=== PATIENT | female | born 1955 | race Caucasian/White ===

== ENCOUNTER → 2018-03-10 | Outpatient (CLI) | payer OTHER ==
[~2018-03-10] MED LIST: FLU60VIA41 IM; LEVO25TA61 PO
--- NOTE | 2018-03-10 16:24 | RADIOLOGY IMAGING REPORT ---
FACILITY: [facility] PATIENT NAME: SCOTTY ROMAN : [id number] MR: [id number] V: [id number] EXAM DATE: [id number] ORDERING PHYSICIAN: JEFFERY MONSIVAIS TECHNOLOGIST: Radha Odonnell PROCEDURE:BILATERAL DIGITAL SCREENING MAMMOGRAM WITH CAD ASSISTED INTERPRETATION & 3D TOMOSYNTHESIS COMPARISON:Prior mammograms 03/03/13, 06/17/11. INDICATIONS:screening FINDINGS: There are scattered areas of fibroglandular density. The parenchymal pattern has remained stable allowing for difference in mammographic technique & patient positioning. There is no evidence of malignant appearing mass, malignant appearing calcifications or other secondary sign of malignancy in either breast. DIAGNOSTIC CATEGORY 1--NEGATIVE. RECOMMENDATIONS: ROUTINE MAMMOGRAM AND CLINICAL EVALUATION. IMPRESSION: BIRADS 1: Negative. No significant abnormality is seen. Dictated by: Abimbola Noe M.D. on 03/10/2018 at 14:54 Transcribed by: GILBERT on 03/10/2018 at 15:14 Approved by: Abimbola Noe M.D. on 03/10/2018 at 16:23 [facility]
== END ==
LOC: MAMO 00:29
PROVIDERS: ATTEND Nurse Practitioner Family
DX: Z12.31 Encounter for screening mammogram for malignant neoplasm of breast (principal)
CPT/HCPCS: 77063; 77067

== ENCOUNTER 2018-06-15 08:33 | Emergency (ER) | payer OTHER ==
[~2018-06-15 08:33] MED LIST changes: +LEVO50TA86 PO
--- NOTE | 2018-06-15 08:37 | ER Report ---
History and Physical Time Seen By MD: 08:36 HPI/ROS CHIEF COMPLAINT: Shortness of breath HISTORY OF PRESENT ILLNESS: Patient is a 63-year-old female who presents with worsening shortness of breath over the past 3 weeks along with nonproductive cough. Patient is a [place] resident however every year spends approximately 2 months in [place]. Patient states symptoms began while in [place] with some generalized malaise mild sore throat and nonproductive cough. The symptoms lasted approximately 1-2 weeks and then and somewhat improved and then for the last few days symptoms have worsened. Patient just returned from [place] to [place] yesterday. Patient denies ever having issues with change in altitude. She describes a discomfort in the chest as a heaviness and pressure along with difficulty taking in a deep breath patient is a nonsmoker. Patient was recently started on thyroid medication for hypothyroidism and has been taking medications for the last 2 months. Patient does admit over the past 2-3 weeks with some night sweats also with some weight loss patient states that she had weighed 152 pounds, weight increased to 158 and then in the last week has decreased her weight to 146 pounds. REVIEW OF SYSTEMS: Constitutional: No fevers but reports night sweats over the past 2-3 weeks Eyes: No discharge. ENT: No sore throat. Cardiovascular: Chest pressure, no palpitations Respiratory: Dry cough and shortness of breath Gastrointestinal: No abdominal pain, no vomiting. Genitourinary: No hematuria. Musculoskeletal: No back pain. Skin: No rashes. Neurological: No headache. Allergies: Coded Allergies: No Known Drug Allergies (Unverified , 06/15/18) Home Meds Active Scripts Benzonatate 100 Mg Cap (TESSALON PERLE 100 MG CAP) 100 Mg Capsule, 100 MG PO TID for cough, #15 CAP 0 Refills Prov:STEPHEN SHERWOOD MD 06/15/18 Levothyroxine Sodium (LEVOTHYROXINE SODIUM) 50 Mcg Tablet, 1 TAB PO DAILY, #90 TAB 0 Refills Prov:JEFFERY MONSIVAIS APRN-C 05/07/18 Past Medical/Surgical History Hypothyroidism otherwise healthy, no known cardiac history Constitutional Vital Sign - Last 24 Hours 06/15/18 06/15/18 06/15/18 06/15/18 08:37 08:38 08:45 08:50 Temp 98.4 Pulse 91 84 Resp 10 12 B/P (MAP) 122/85 (97) 122/85 105/82 (90) Pulse Ox 95 91 O2 Delivery Room Air 06/15/18 06/15/18 06/15/18 06/15/18 09:00 09:15 09:19 09:19 Pulse 80 Resp 14 B/P (MAP) 127/89 (102) 124/82 (96) Pulse Ox 90 O2 Delivery Room Air 06/15/18 06/15/18 06/15/18 06/15/18 09:20 09:25 09:30 09:45 Pulse 80 98 Resp 6 14 B/P (MAP) 114/71 (85) ???/??? (1665) Pulse Ox 92 06/15/18 06/15/18 06/15/18 06/15/18 09:50 10:00 10:15 10:20 Pulse ??? 75 B/P (MAP) 123/76 (92) 125/77 (93) Pulse Ox 96 06/15/18 06/15/18 06/15/18 06/15/18 10:30 10:45 10:50 11:26 B/P (MAP) 120/78 (92) 136/79 (98) 134/90 (105) Pulse Ox 96 06/15/18 06/15/18 06/15/18 06/15/18 11:30 11:43 11:43 11:55 Pulse 78 93 Resp 14 B/P (MAP) 117/82 (94) Pulse Ox 91 99 O2 Delivery Room Air 06/15/18 06/15/18 11:58 12:00 Pulse 81 Resp 14 B/P (MAP) 132/67 (88) Physical Exam General/Constitutional: Patient is awake, alert, nontoxic and in no acute respiratory distress. Head: Normocephalic and atraumatic. Eyes: Conjunctival clear, Pupils are equal and reactive to light. Extraocular muscles are intact and symmetrical. Sclera are clear and anicteric. Ears:External canals are clear. Tympanic membranes are clear with normal landmarks and light reflex. Nares: No rhinorrhea or bleeding. Turbinates are pink and moist. Oropharyngeal: Mucous membranes are moist. There is no pharyngeal erythema or exudate. There are no palatal petechiae. Uvula is midline and symmetrical. Neck: Supple, patient with enlarged firm left thyroid mass Cardiovascular: Heart is regular rate and rhythm without audible murmurs, rubs or gallops. Pulmonary: Lungs are clear to auscultation bilaterally. There are no wheezes, rales, or rhonchi. Chest rise is symmetrical Abdomen: Soft, nontender, no guarding or peritoneal signs. Extremities: No gross deformities, No peripheral cyanosis. Able to move all 4 extremities. Neuro: Alert and oriented X3, Skin: No rashes, skin is warm dry and well perfused. Medical Decision Making Data Points Result Diagram: 06/15/18 0845 06/15/18 0845 Laboratory Hematology Test 06/15/18 08:45 06/15/18 09:20 Red Blood Count 3.71 M/uL (4.17-5.56) Mean Corpuscular Volume 94.8 fL (80.0-96.0) Mean Corpuscular Hemoglobin 31.8 pg (26.0-33.0) Mean Corpuscular Hemoglobin Concent 33.6 g/dL (32.0-36.0) Red Cell Distribution Width 12.3 % (11.5-14.5) Mean Platelet Volume 7.0 fL (7.2-11.1) Neutrophils (%) (Auto) 74.7 % (39.4-72.5) Lymphocytes (%) (Auto) 15.3 % (17.6-49.6) Monocytes (%) (Auto) 7.3 % (4.1-12.4) Eosinophils (%) (Auto) 2.2 % (0.4-6.7) Basophils (%) (Auto) 0.5 % (0.3-1.4) Nucleated RBC Relative Count (auto) 0.0 /100WBC Neutrophils # (Auto) 10.1 K/uL (2.0-7.4) Lymphocytes # (Auto) 2.1 K/uL (1.3-3.6) Monocytes # (Auto) 1.0 K/uL (0.3-1.0) Eosinophils # (Auto) 0.3 K/uL (0.0-0.5) Basophils # (Auto) 0.1 K/uL (0.0-0.1) Nucleated RBC Absolute Count (auto) 0.00 K/uL Erythrocyte Sedimentation Rate 27 mm/HOUR (0-30) Prothrombin Time 13.3 seconds (12.0-14.4) Prothromb Time International Ratio 1.01 Activated Partial Thromboplast Time 30 seconds (23-35) Sodium Level 139 mmol/L (137-145) Potassium Level 3.6 mmol/L (3.5-5.0) Chloride Level 105 mmol/L (98-107) Carbon Dioxide Level 26 mmol/L (22-31) Blood Urea Nitrogen 11 mg/dl (7-18) Creatinine 0.90 mg/dl (0.52-1.04) Glomerular Filtration Rate Calc > 60.0 Random Glucose 98 mg/dl (75-110) Calcium Level 9.3 mg/dl (8.4-10.2) Total Bilirubin 0.6 mg/dl (0.2-1.3) Aspartate Amino Transf (AST/SGOT) 21 U/L (0-35) Alanine Aminotransferase (ALT/SGPT) 24 U/L (0-56) Alkaline Phosphatase 111 U/L (0-126) Troponin I < 0.012 ng/ml B-Type Natriuretic Peptide 155 pg/ml (0-100) Total Protein 7.5 g/dl (6.3-8.2) Albumin 4.1 g/dl (3.5-5.0) Thyroid Stimulating Hormone (TSH) 4.96 uIU/ml (0.46-4.68) Influenza Virus Type A (PCR) Negative (NEGATIVE) Influenza Virus Type B (PCR) Negative (NEGATIVE) Chemistry Test 06/15/18 08:45 06/15/18 09:20 White Blood Count 13.5 k/uL (4.5-11.0) Red Blood Count 3.71 M/uL (4.17-5.56) Hemoglobin 11.8 g/dL (12.0-16.0) Hematocrit 35.2 % (34.0-47.0) Mean Corpuscular Volume 94.8 fL (80.0-96.0) Mean Corpuscular Hemoglobin 31.8 pg (26.0-33.0) Mean Corpuscular Hemoglobin Concent 33.6 g/dL (32.0-36.0) Red Cell Distribution Width 12.3 % (11.5-14.5) Platelet Count 459 K/uL (150-450) Mean Platelet Volume 7.0 fL (7.2-11.1) Neutrophils (%) (Auto) 74.7 % (39.4-72.5) Lymphocytes (%) (Auto) 15.3 % (17.6-49.6) Monocytes (%) (Auto) 7.3 % (4.1-12.4) Eosinophils (%) (Auto) 2.2 % (0.4-6.7) Basophils (%) (Auto) 0.5 % (0.3-1.4) Nucleated RBC Relative Count (auto) 0.0 /100WBC Neutrophils # (Auto) 10.1 K/uL (2.0-7.4) Lymphocytes # (Auto) 2.1 K/uL (1.3-3.6) Monocytes # (Auto) 1.0 K/uL (0.3-1.0) Eosinophils # (Auto) 0.3 K/uL (0.0-0.5) Basophils # (Auto) 0.1 K/uL (0.0-0.1) Nucleated RBC Absolute Count (auto) 0.00 K/uL Erythrocyte Sedimentation Rate 27 mm/HOUR (0-30) Prothrombin Time 13.3 seconds (12.0-14.4) Prothromb Time International Ratio 1.01 Activated Partial Thromboplast Time 30 seconds (23-35) Glomerular Filtration Rate Calc > 60.0 Calcium Level 9.3 mg/dl (8.4-10.2) Total Bilirubin 0.6 mg/dl (0.2-1.3) Aspartate Amino Transf (AST/SGOT) 21 U/L (0-35) Alanine Aminotransferase (ALT/SGPT) 24 U/L (0-56) Alkaline Phosphatase 111 U/L (0-126) Troponin I < 0.012 ng/ml B-Type Natriuretic Peptide 155 pg/ml (0-100) Total Protein 7.5 g/dl (6.3-8.2) Albumin 4.1 g/dl (3.5-5.0) Thyroid Stimulating Hormone (TSH) 4.96 uIU/ml (0.46-4.68) Influenza Virus Type A (PCR) Negative (NEGATIVE) Influenza Virus Type B (PCR) Negative (NEGATIVE) Coagulation Test 06/15/18 08:45 Prothrombin Time 13.3 seconds Prothromb Time International Ratio 1.01 Activated Partial Thromboplast Time 30 seconds EKG/Imaging EKG Interpretation EKG shows normal sinus rhythm with a ventricular rate of 77 bpm. There is occasional sinus arrhythmia eyes normal EKG Imaging FACILITY: [facility] [place] PATIENT NAME: Alina Flanagan : 1955 MR: [id number] V: [id number] EXAM DATE: [id number] ORDERING PHYSICIAN: STEPHEN SHERWOOD TECHNOLOGIST: [place] [facility] [place] Fl[place] : 1955 Visit/Account:[id number] Date of Sevice: 06/15/2018 Study: Frontal and lateral views of the chest Indication: Cough, chest congestion Comparison study: None Findings: PA and lateral views of the chest demonstrate no evidence of acute infiltrate. There is no evidence of pleural effusion. There is no evidence of pneumothorax. The mediastinal, cardiac, and diaphragmatic contours are unremarkable. The visualized bony structures are unremarkable. IMPRESSION: Unremarkable chest. Report Dictated By: Archie Garza at 06/15/2018 9:45 AM Report E-Signed By: Archie Garza at 06/15/2018 9:45 AM WSN:[email or web address] FACILITY: [facility] [place] PATIENT NAME: Alina Flanagan : 1955 MR: [id number] V: [id number] EXAM DATE: ORDERING PHYSICIAN: STEPHEN SHERWOOD TECHNOLOGIST: [place] [facility] [place] Fl[place] : 1955 Visit/Account:[id number] Date of Sevice: 06/15/2018 THYROID HISTORY: Rapidly growing thyroid mass over a three week period with difficulty breathing COMPARISON: None. FINDINGS: SIZE: Right lobe: 3.6 x 1.1 x 0.9 cm Left lobe: 4.7 x 4.9 x 4.3 cm Isthmus: 5.1 mm PARENCHYMA: Heterogeneous NODULES: Right lobe: * Please see below discussion Left lobe: * There is a large irregular heterogeneous hypoechoic hypervascular mass encompassing most of the left lobe and appears to cross midline at the isthmus into the medial right lobe. This mass measures 4.3 x 4.7 x 4.1 cm Isthmus: * Please see above discussion VASCULARITY: Within normal limits. ADDITIONAL FINDINGS: None. IMPRESSION: There is a large irregular heterogeneous hypoechoic hypervascular mass enc ompassing most of the left lobe appears to cross midline of the isthmus and into the medial right lobe. Given the clinical history of rapid enlargement over a three week period this finding is extremely concerning for malignancy. Ultrasound-guided FNA biopsy recommended REFERENCE: 2015 [place] [employer] Management Guidelines for Adult Patients with Thyroid Nodules and Differentiated Thyroid Cancer: The [place] [employer] Guidelines Task Force on Thyroid Nodules and Differentiated Thyroid Cancer. SONOGRAPHIC PATTERNS: * Benign: Purely cystic nodules (no solid component); estimated risk of malignancy <1 percent; no biopsy recommended. * Very Low Suspicion: Spongiform or partially cystic nodules without any of the sonographic features described in low, intermediate, or high suspicion patterns; estimated risk of malignancy <3 percent; consider FNA at > 2 cm (Observation without FNA is also a reasonable option). * Low Suspicion: Isoechoic or hyperechoic solid nodule, or partially cystic nodule with eccentric solid areas, without microcalcification, irregular margin or ETE (extra-thyroidal extension), or taller than wide shape; estimated risk of malignancy 5-10 percent; recommend FNA at >1.5 cm. * Intermediate Suspicion: Hypoechoic solid nodule with smooth margins without microcalcifications, ETE (extra-thyroidal extension), or taller than wide shape; estimated risk of malignancy 10-20 percent; recommend FNA at > 1 cm. * High Suspicion: Solid hypoechoic nodule or solid hypoechoic component of a partially cystic nodule with one or more of the following features: irregular margins (infiltrative, microlobulated), microcalcifications, taller than wide shape, rim calcifications with small extrusive soft tissue component, evidence of ETE (extra-thyroidal extension); estimated risk of malignancy >70-90 percent; recommend FNA at > 1 cm. NOTES: * Although a sonographically suspicious subcentimeter thyroid nodule without evidence of extrathyroidal extension or sonographically suspicious lymph nodes may be observed with close sonographic follow-up rather than pursuing immediate FNA, patient age and preference may modify decision-making. A > 50% interval increase in nodule volume and/or development of new suspicious sonographic features are felt to be a valid reasons for potential re-aspiration of a nodule previously shown to have benign FNA cytology. Report Dictated By: Abimbola Noe MD at 06/15/2018 10:09 AM Report E-Signed By: Abimbola Noe MD at 06/15/2018 10:15 AM WSN:PAT ED Course/Re-evaluation ED Course 06/15/2018 10:37:36 am patient with symptoms of lower respiratory tract disease possibly concerning for community acquired pneumonia. Patient with recent stay in [place] over the last few months was also raises the possibility for coccidiomycosis.; CBC shows elevated white count at 13.4; with the electronic medical literature shows that an approximately one quarter of the patient's there is eosinophilia and 1-2 times elevation of sedimentation rate. Patient has no significant eosinophilia and sedimentation rate is normal. Chest x-ray is clear. Despite all these tests being normal it still does not rule out the possibility of coccidiomycosis. A antibody titers of IgG and IgM for coccidiomycosis was sent as a mail route lab. Patient did respond to breathing treatments and seems is that this made her work of breathing easier. Troponin was negative EKG was normal. Additionally on physical exam patient had an asymmetrical enlargement of the left lobe of her thyroid. An ultrasound was performed which demonstrated a solid mass which was concerning for possible lyn gnancy due to its growth over the past 2-3 weeks. We have arranged for fine needle aspiration test to be done. We spoke with patient's primary care provider Daniel Plata is aware to follow up in the blood work as well as the fine- needle aspirate results. I also spoke directly with Dr. Lewis Curiel ear nose and throat physician. He requests that the pathology be sent to [facility] in [facility]. He will also follow up with the patient sometime next week I am waiting to hear from his nurse to schedule that appointment. The patient and were updated with all information. We have opted this time not to empirically treat for coccidiomycosis but rather wait on the blood test. Patient also understands she will need follow-up with her primary care provider as well as follow up with Dr. Curiel for the thyroid mass. Decision to Disposition Date: Jun 15, 2018 Decision to Disposition Time: 13:13 Depart Departure Latest Vital Signs Vital Signs Date Time Temp Pulse Resp B/P (MAP) Pulse Ox O2 Delivery O2 Flow Rate FiO2 06/15/18 12:00 132/67 (88) 06/15/18 11:58 81 14 06/15/18 11:55 99 06/15/18 11:43 Room Air 06/15/18 08:38 98.4 Impression: Primary Impression: Cough Additional Impression: Thyroid mass Condition: Improved Disposition: HOME OR SELF-CARE Referrals: JEFFERY MONSIVAIS APRN FAMILY PROGRAM SPECIALIST-C (PCP) LEWIS CURIEL JR, MD follow up on June 22 at 1:30 PM New Scripts Benzonatate 100 Mg Cap (TESSALON PERLE 100 MG CAP) 100 Mg Capsule 100 MG PO TID for cough, #15 CAP 0 Refills Prov: STEPHEN SHERWOOD MD 06/15/18 Patient Instructions: Acute Cough (GEN), Thyroid Fine-Needle Aspiration Biopsy (DC) Additional Instructions: Albuterol inhaler 2 puffs by mouth every 4-6 hours as needed for cough or shilpi rtness of breath. Return to the ER immediately if you have worsening shortness of breath or inability to swallow. Problem Qualifiers STEPHEN SHERWOOD MD Jun 15, 2018 08:37
[2018-06-15] MEDS ORDERED: ALBUTEROL/IPRATROPIUM 3 ML NEB NEB ONE ×2 (08:55→10:45)
[2018-06-15 09:15] LABS: PLATELET COUNT, AUTOMATED 459 K/uL (150-450)
[2018-06-15 09:22] LABS: INR 1.01
--- NOTE | 2018-06-15 09:50 | RADIOLOGY IMAGING REPORT ---
FACILITY: [facility] [place] PATIENT NAME: Alina Flanagan : 1955 MR: [id number] V: [id number] EXAM DATE: ORDERING PHYSICIAN: STEPHEN SHERWOOD TECHNOLOGIST: Location: [facility] Patient: Alina Flanagan : 1955 Visit/Account:[id number] Date of Sevice: 06/15/2018 Study: Frontal and lateral views of the chest Indication: Cough, chest congestion Comparison study: None Findings: PA and lateral views of the chest demonstrate no evidence of acute infiltrate. There is no evidence of pleural effusion. There is no evidence of pneumothorax. The mediastinal, cardiac, and diaphragmatic contours are unremarkable. The visualized bony structures are unremarkable. IMPRESSION: Unremarkable chest. Report Dictated By: Archie Garza at 06/15/2018 9:45 AM Report E-Signed By: Archie Garza at 06/15/2018 9:45 AM WSN:[email or web address]
--- NOTE | 2018-06-15 10:20 | RADIOLOGY IMAGING REPORT ---
FACILITY: [facility] [place] PATIENT NAME: Alina Flanagan : 1955 MR: [id number] V: [id number] EXAM DATE: ORDERING PHYSICIAN: STEPHEN SHERWOOD TECHNOLOGIST: Location: [facility] Patient: Alina Flanagan : 1955 Visit/Account:[id number] Date of Sevice: 06/15/2018 THYROID HISTORY: Rapidly growing thyroid mass over a three week period with difficulty breathing COMPARISON: None. FINDINGS: SIZE: Right lobe: 3.6 x 1.1 x 0.9 cm Left lobe: 4.7 x 4.9 x 4.3 cm Isthmus: 5.1 mm PARENCHYMA: Heterogeneous NODULES: Right lobe: * Please see below discussion Left lobe: * There is a large irregular heterogeneous hypoechoic hypervascular mass encompassing most of the le ft lobe and appears to cross midline at the isthmus into the medial right lobe. This mass measures 4 .3 x 4.7 x 4.1 cm Isthmus: * Please see above discussion VASCULARITY: Within normal limits. ADDITIONAL FINDINGS: None. IMPRESSION: There is a large irregular heterogeneous hypoechoic hypervascular mass encompassing most of the left lobe appears to cross midline of the isthmus and into the medial right lobe. Given the clinical hist ory of rapid enlargement over a three week period this finding is extremely concerning for malignancy . Ultrasound-guided FNA biopsy recommended REFERENCE: 2015 [place] [employer] Management Guidelines for Adult Patients with Thyroid Nodules and D ifferentiated Thyroid Cancer: The [place] [employer] Guidelines Task Force on Thyroid Nodul es and Differentiated Thyroid Cancer. SONOGRAPHIC PATTERNS: * Benign: Purely cystic nodules (no solid component); estimated risk of malignancy <1 percent; no bi opsy recommended. * Very Low Suspicion: Spongiform or partially cystic nodules without any of the sonographic features described in low, intermediate, or high suspicion patterns; estimated risk of malignancy <3 percent; consider FNA at > 2 cm (Observation without FNA is also a reasonable option). * Low Suspicion: Isoechoic or hyperechoic solid nodule, or partially cystic nodule with eccentric so lid areas, without microcalcification, irregular margin or ETE (extra-thyroidal extension), or taller than wide shape; estimated risk of malignancy 5-10 percent; recommend FNA at >1.5 cm. * Intermediate Suspicion: Hypoechoic solid nodule with smooth margins without microcalcifications, E TE (extra-thyroidal extension), or taller than wide shape; estimated risk of malignancy 10-20 percent ; recommend FNA at > 1 cm. * High Suspicion: Solid hypoechoic nodule or solid hypoechoic component of a partially cystic nodule with one or more of the following features: irregular margins (infiltrative, microlobulated), microc alcifications, taller than wide shape, rim calcifications with small extrusive soft tissue component, evidence of ETE (extra-thyroidal extension); estimated risk of malignancy >70-90 percent; recommend FNA at > 1 cm. NOTES: * Although a sonographically suspicious subcentimeter thyroid nodule without evidence of extrathyroi alejandro extension or sonographically suspicious lymph nodes may be observed with close sonographic follow -up rather than pursuing immediate FNA, patient age and preference may modify decision-making. A > 50% interval increase in nodule volume and/or development of new suspicious sonographic features are felt to be a valid reasons for potential re-aspiration of a nodule previously shown to have benig n FNA cytology. Report Dictated By: Abimbola Noe MD at 06/15/2018 10:09 AM Report E-Signed By: Abimbola Noe MD at 06/15/2018 10:15 AM WSN:PAT
[2018-06-15] MEDS ORDERED: ALBUTEROL 8 GM INHALER INH ONE (10:45)
[2018-06-15] MEDS ORDERED: BENZ100C4 PO (11:22)
[2018-06-15 12:00] VITALS: BP 132/67
--- NOTE | 2018-06-15 12:09 | RADIOLOGY IMAGING REPORT ---
FACILITY: [facility] PATIENT NAME: Alina lFanagan : 1955 MR: [id number] V: [id number] EXAM DATE: ORDERING PHYSICIAN: STEPHEN SHERWOOD TECHNOLOGIST: Location: [facility] Patient: Alina Flanagan : 1955 Visit/Account:[id number] Date of Sevice: 06/15/2018 Exam type: US BIOPSY LOC/INJ THYROID History: Rapidly enlarging left thyroid mass over a three week period with difficulty breathing Comparison: Ultrasound performed today. Findings: Informed consent was obtained. The left side of the patient's neck was prepped and draped usual ster ile fashion. Local anesthesia was accomplished with 1% lidocaine. Under sonographic guidance five 2 5-gauge FNA biopsies were obtained through the large heterogeneous mass in the left lobe the thyroid. The samples were given to the certified pathology assistant for processing. The procedure was accomplishe d without apparent complication. IMPRESSION: 1. Successful sonographically guided left-sided thyroid biopsy Report Dictated By: Abimbola Noe MD at 06/15/2018 12:04 PM Report E-Signed By: Abimbola Noe MD at 06/15/2018 12:05 PM WSN:[id number]
--- NOTE | 2018-06-15 12:11 | EKG ---
FACILITY: [facility] PATIENT NAME: SCOTTY ROMAN : [id number] MR: [id number] V: [id number] EXAM DATE: ORDERING PHYSICIAN: STEPHEN SHERWOOD TECHNOLOGIST: DEMETRIO Test Reason : SOB Blood Pressure : / mmHG Vent. Rate : 077 BPM Atrial Rate : 077 BPM P-R Int : 140 ms QRS Dur : 084 ms QT Int : 374 ms P-R-T Axes : 065 080 067 degrees QTc Int : 423 ms Sinus rhythm Nonspecific ST findings lateral leads Borderline ECG No previous ECGs available Confirmed by JERONIMO RUSSELL ([id number] on 06/15/2018 8:34:33 PM Referred By: PRESLEY Confirmed By:JERONIMO RUSSELL
== END 2018-06-15 12:18 | disposition home or self-care (01) ==
LOC: ER 08:37
DX: R05 Cough (principal); E04.9 Nontoxic goiter, unspecified
CPT/HCPCS: 10005; 71046; 76536; 83880; 84443; 84484; 85025; 85610; 85651; 85730; 86635; 87502; 88104; 88172; 93005; 94640; 99284; J7620; 76942; 82040; 82247; 82310; 82374; 82435; 82565; 82947; 84075; 84132; 84155; 84295; 84450; 84460; 84520

== ENCOUNTER 2018-06-16 19:15 | Emergency (ER) | payer OTHER ==
[~2018-06-16 19:15] MED LIST changes: +BENZ100C4 PO
--- NOTE | 2018-06-16 19:25 | ER Report ---
History and Physical Time Seen By MD: 19:25 Hx. of Stated Complaint: PATIENT WAS SEEN YESTERDAY IN ER FOR SHORTNESS OF BREATH, PATIENT STATES IT HAS GOTTEN WORSE AND AINHLAER ISN'T SEEM TO BE WORKING, COUGH IS GETTING WORSE WELL. HPI/ROS CHIEF COMPLAINT: Cough, shortness of breath HISTORY OF PRESENT ILLNESS: 63-year-old female patient persists to emergency room with complaint of cough and shortness of breath. Patient states she was seen yesterday for same problem and states that it has worsened since then. Grace ent states that she has some anxiety associated with her shortness of breath. Patient states she's been having significant amounts of coughing. She denies having any fevers. Patient states that she was in [place] for the past couple of months. She states that both her and her got ill and she has had persistent cough since then. She states that she also had a needle biopsy of a thyroid mass done yesterday. She states that she has had some swelling there today. She states that there is been worsening of her cough and shortness of breath. REVIEW OF SYSTEMS: Respiratory: No cough, no dyspnea. Cardiovascular: No chest pain, no palpitations. Gastrointestinal: No vomiting, no abdominal pain. Musculoskeletal: No back pain. Allergies: Coded Allergies: No Known Drug Allergies (Unverified , 06/16/18) Home Meds Active Scripts Benzonatate 100 Mg Cap (TESSALON PERLE 100 MG CAP) 100 Mg Capsule, 100 MG PO TID for cough, #15 CAP 0 Refills Prov:STEPHEN SHERWOOD MD 06/15/18 Levothyroxine Sodium (LEVOTHYROXINE SODIUM) 50 Mcg Tablet, 1 TAB PO DAILY, #90 TAB 0 Refills Prov:JEFFERY MONSIVAIS APRN SERVICES [facility] 05/07/18 Past Medical/Surgical History Patient denies any pertinent medical or surgical history. Reviewed Nurses Notes: Yes Hx Substance Use Disorder: No Hx Alcohol Use: Yes (2-3 WINE DAILY) Constitutional Vital Sign - Last 24 Hours 06/16/18 06/16/18 06/16/18 06/16/18 19:21 19:30 19:45 19:47 Temp 99.4 Pulse 74 79 74 Resp 12 9 17 B/P (MAP) 144/83 128/102 (111) Pulse Ox 94 97 93 92 O2 Delivery Room Air Room Air 06/16/18 06/16/18 06/16/18 06/16/18 19:47 19:55 20:00 20:15 Pulse 80 88 75 78 Resp 18 18 9 30 B/P (MAP) 131/79 (96) Pulse Ox 96 96 06/16/18 06/16/18 06/16/18 06/16/18 20:45 20:50 20:55 21:00 Pulse 91 89 88 81 Resp 25 32 16 21 B/P (MAP) 120/83 (95) Pulse Ox 92 94 93 91 06/16/18 06/16/18 06/16/18 06/16/18 21:05 21:10 21:15 21:20 Pulse 86 82 94 82 Resp 13 10 26 28 Pulse Ox 90 89 91 89 06/16/18 06/16/18 06/16/18 06/16/18 21:25 21:30 21:55 22:00 Pulse 79 88 Resp 16 9 B/P (MAP) 111/77 (88) 122/88 (99) Pulse Ox 89 92 06/16/18 06/16/18 06/16/18 06/16/18 22:10 22:25 22:30 22:40 Pulse 101 79 79 Resp 18 18 36 B/P (MAP) 115/87 (96) Pulse Ox 94 91 91 06/16/18 06/16/18 06/16/18 06/16/18 22:55 23:00 23:05 23:10 Pulse 78 75 76 76 Resp 15 47 78 10 B/P (MAP) 132/82 (99) Pulse Ox 92 91 91 91 06/16/18 06/16/18 06/16/18 06/16/18 23:15 23:20 23:25 23:30 Pulse 82 78 94 86 Resp 22 12 10 24 B/P (MAP) 138/100 (113) Pulse Ox 89 93 94 91 06/16/18 06/16/18 06/16/18 06/16/18 23:35 23:40 23:45 23:50 Pulse 82 84 87 ??? Resp 17 31 21 17 Pulse Ox 93 90 91 79 06/17/18 06/17/18 06/17/18 06/17/18 00:00 00:05 00:10 00:15 Pulse 85 78 80 82 Resp 34 8 10 B/P (MAP) 142/82 (102) Pulse Ox 93 93 94 06/17/18 06/17/18 06/17/18 06/17/18 00:20 00:30 00:35 00:40 Pulse 79 73 91 ??? Resp 11 9 26 18 B/P (MAP) 126/82 (97) Pulse Ox 92 90 94 Intake and Output 06/16/18 06/16/18 06/17/18 15:00 23:00 07:00 Intake Total 1000 ml Balance 1000 ml Physical Exam General Appearance: The patient is alert, has no immediate need for airway protection and no current signs of toxicity. Respiratory: Chest is non tender, lungs are diminished with wheezing to auscultation. Cardiac: regular rate and rhythm Gastrointestinal: Abdomen is soft and non tender, no masses, bowel sounds normal. Musculoskeletal: Neck: Neck is supple and non tender. Extremities have full range of motion and are non tender. Skin: No rashes or lesions. DIFFERENTIAL DIAGNOSIS: After history and physical exam differential diagnosis was considered for shortness of breath including but not limited to pulmonary infectious process, COPD, asthma, pulmonary embolus and congestive heart failure. Medical Decision Making Data Points Result Diagram: 06/16/181939 Laboratory Hematology Test 06/16/18 19:40 Red Blood Count 3.66 M/uL (4.17-5.56) Mean Corpuscular Volume 94.5 fL (80.0-96.0) Mean Corpuscular Hemoglobin 32.1 pg (26.0-33.0) Mean Corpuscular Hemoglobin Concent 33.9 g/dL (32.0-36.0) Red Cell Distribution Width 12.4 % (11.5-14.5) Mean Platelet Volume 7.1 fL (7.2-11.1) Neutrophils (%) (Auto) 80.6 % (39.4-72.5) Lymphocytes (%) (Auto) 11.9 % (17.6-49.6) Monocytes (%) (Auto) 6.1 % (4.1-12.4) Eosinophils (%) (Auto) 1.1 % (0.4-6.7) Basophils (%) (Auto) 0.3 % (0.3-1.4) Nucleated RBC Relative Count (auto) 0.0 /100WBC Neutrophils # (Auto) 13.4 K/uL (2.0-7.4) Lymphocytes # (Auto) 2.0 K/uL (1.3-3.6) Monocytes # (Auto) 1.0 K/uL (0.3-1.0) Eosinophils # (Auto) 0.2 K/uL (0.0-0.5) Basophils # (Auto) 0.1 K/uL (0.0-0.1) Nucleated RBC Absolute Count (auto) 0.00 K/uL Chemistry Test 06/16/18 19:40 White Blood Count 16.6 k/uL (4.5-11.0) Red Blood Count 3.66 M/uL (4.17-5.56) Hemoglobin 11.7 g/dL (12.0-16.0) Hematocrit 34.6 % (34.0-47.0) Mean Corpuscular Volume 94.5 fL (80.0-96.0) Mean Corpuscular Hemoglobin 32.1 pg (26.0-33.0) Mean Corpuscular Hemoglobin Concent 33.9 g/dL (32.0-36.0) Red Cell Distribution Width 12.4 % (11.5-14.5) Platelet Count 472 K/uL (150-450) Mean Platelet Volume 7.1 fL (7.2-11.1) Neutrophils (%) (Auto) 80.6 % (39.4-72.5) Lymphocytes (%) (Auto) 11.9 % (17.6-49.6) Monocytes (%) (Auto) 6.1 % (4.1-12.4) Eosinophils (%) (Auto) 1.1 % (0.4-6.7) Basophils (%) (Auto) 0.3 % (0.3-1.4) Nucleated RBC Relative Count (auto) 0.0 /100WBC Neutrophils # (Auto) 13.4 K/uL (2.0-7.4) Lymphocytes # (Auto) 2.0 K/uL (1.3-3.6) Monocytes # (Auto) 1.0 K/uL (0.3-1.0) Eosinophils # (Auto) 0.2 K/uL (0.0-0.5) Basophils # (Auto) 0.1 K/uL (0.0-0.1) Nucleated RBC Absolute Count (auto) 0.00 K/uL EKG/Imaging Imaging EXAMINATION: CT chest with IV contrast HISTORY: Shortness of breath. COMPARISON: None. TECHNIQUE: Axial images were taken through the chest during injection of nonionic iodinated intravenous contrast. Sagittal and coronal reformatted images are also submitted. CONTRAST: 75 mL of IV Isovue-370 One of the following dose optimization techniques was utilized in the performance of this exam: Automated exposure control; adjustment of the mA and/or kV according to the patient's size; or use of an iterative reconstruction technique. Specific details can be referenced in the facility's radiology CT exam operational policy. FINDINGS: Lungs / pleura: Approximately 12 noncalcified nodules in the lungs, the largest in the left upper lobe measuring 1.3 cm. No pleural effusion or pneumothorax. Mediastinum / thea: Small sliding hiatal hernia. Heart / pericardium: Negative. Vessels: Negative. Musculoskeletal / Body wall: Negative. Lymph node assessment: Multiple enlarged upper mediastinal lymph nodes and multiple enlarged heterogeneous lymph nodes along the thyroid. Lower neck: Large mass in the left lobe of the thyroid which invades the trachea causing stenosis of the subglottic trachea. Upper abdomen: Colonic diverticulosis. IMPRESSION: Large mass in the left lobe of the thyroid with metastatic adenopathy along the thyroid and in the upper mediastinum. 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 Report Dictated By: Nilesh Benedict MD at 06/16/2018 9:45 PM Report E-Signed By: Nilesh Benedict MD at 06/16/2018 9:51 PM EXAMINATION: CT neck with IV contrast HISTORY: Shortness of breath. COMPARISON: Thyroid ultrasound from the same day. TECHNIQUE: Spiral scan was obtained from the hard palate through the upper ch est during injection of nonionic iodinated intravenous contrast. Sagittal and coronal reformatted images are also submitted. CONTRAST: 75 mL of IV Isovue-370 One of the following dose optimization techniques was utilized in the performance of this exam: Automated exposure control; adjustment of the mA and/or kV according to the patient's size; or use of an iterative reconstruction technique. Specific details can be referenced in the facility's radiology CT exam operational policy. FINDINGS: Masses/lesions: There is a large heterogeneous mass centered at the left lobe of the thyroid measuring 5.4 x 4.7 x 4.4 cm. There is invasion of the mass into the subglottic trachea resulting in stenosis of the subglottic tracheal lumen to 8 x 4 mm in axial dimensions along the mass. There are multiple enlarged heterogeneous lymph nodes along the thyroid and in the upper mediastinum, the largest node located posterior to the thyroid mass on the left measuring 1.9 cm in short axis. There is edema in the retropharyngeal soft tissues along the hypopharynx. Airway: Stenosis of the subglottic airway as noted above due to invasion of the trachea by the thyroid mass. The trachea is also deviated towards the right due to the left thyroid mass. The upper esophagus is shifted towards the right due to the thyroid mass. The thyroid mass might also be invading the wall of the esophagus. Vessels: Mild calcified plaque at the origin of the right subclavian artery mild plaque at the carotid bulbs and origins of the internal carotid arteries without flow-limiting stenosis. Musculoskeletal / Body wall: Multilevel disc degenerative changes in the cervical spine. Lymph node assessment: Several enlarged upper mediastinal lymph nodes and several enlarged heterogeneous lymph nodes along the thyroid. Visualized orbits / brain / paranasal sinuses: Small amount of fluid in the right maxillary sinus. Upper chest: Small bilateral lung nodules. IMPRESSION: Large heterogeneous mass centered in the left lobe of the thyroid which invades and narrows the subglottic trachea and abuts and might also be invading the upper esophagus. There is metastatic adenopathy in the neck along the thyroid and also in the upper mediastinum. 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 Multiple pulmonary nodules which most likely represent metastases. These findings were discussed with PACHECO PICKERING at 06/16/2018 9:31 PM. Report Dictated By: Nilesh Benedict MD at 06/16/2018 9:25 PM Report E-Signed By: Nilesh Benedict MD at 06/16/2018 9:45 PM ED Course/Re-evaluation ED Course Patient was admitted on exam room, history and physical were obtained. Differential diagnoses were considered. On examination lungs are diminished with wheezing, heart is regular, abdomen is soft and nontender. With patient having full workup done yesterday I opted not to do the EKG. However with her having a recent thyroid biopsy I felt the patient should have a CT scan of the soft tissues the neck, looking for any bleeding or swelling as well as of the chest looking for any pneumonia could've been missed. A repeat CBC was done which showed a an elevated white count of 16,000. That is up from 13,000 yesterday. Patient did receive a dose of Solu-Medrol here in the emergency room as well as a nebulizer treatment. Patient states she had no significant improvement in her breathing. CT scan of the soft tissue showed a large thyroid mass which has invaded into the trachea in the subglottic region. The airway is currently measuring 8 mm x 4 mm. There is some displacement of the esophagus. The radiologist was concerned about possible anaplastic thyroid carcinoma. I discussed the case with Dr. Gutierrez, ENT, initially prior to getting the official read back on the CT scan. He felt that it was unlikely that a mass measuring 4 cm x 4 cm x 4 7 days would be causing pressure on the trachea. He wanted to wait to get the official read back for making a plan. I felt that was reasonable and received the results from radiologist. I then informed him of the findings of the CT scan results. He initially felt that it would be good to go ahead and admit the patient here, monitor her overnight to make sure that she doesn't have any worsening of her airway and then he would discuss with her the findings of pathology tomorrow morning. I informed the patient and her of the results. I explained to them what Dr. Gutierrez's recommendations were. I then spoke with Dr. Smith, hospitalist, who felt that he was ill equipped to care for this patient as he is not a surgeon and felt patient should be under the care of a ENT. Dr. Gutierrez have encouraged me that they did not feel comfortable taking care of the patient in [place] at this time that he would recommend transfer to [facility] in [place]. I discussed the case with ANNMARIE Vail at [facility] in [place], I was surprised by the size of the airway and was concerned with the patient being transferred. He requested that I talk with our surgeon and anesthesiologist that are on-call. I discussed case with Dr. Pritchard. He did review the images. He felt that with the patient not having any difficulty breathing at this point in time as well as location of the mass that we best not to go ahead and place a surgical airway. The concern was that he would have to go right through the mass. I discussed the case with Dr. Castro, anesthesiologist, he felt that BiPAP would be beneficial in route. He also felt that it would be better for the treating surgeon to be able to view the mass unmolested. The thought was that he would be better for her to go during this time while she is stable and her airway is stable. I discussed their responses with Dr. Miranda who agreed to accept the patient for transfer. He requested that she be transferred via air. I discussed this with the patient and her and they verbalized understanding and agreement with plan. Decision to Disposition Date: Jun 16, 2018 Decision to Disposition Time: 23:31 Depart Departure Latest Vital Signs Vital Signs Date Time Temp Pulse Resp B/P (MAP) Pulse Ox O2 Delivery O2 Flow Rate FiO2 06/17/18 00:40 ??? 18 06/17/18 00:35 94 06/17/18 00:30 126/82 (97) 06/16/18 19:47 Room Air 06/16/18 19:21 99.4 Impression: Primary Impression: Thyroid mass Condition: Condition Unchanged Disposition: XFER TO [facility] Referrals: JEFFERY MONSIVAIS APRN SERVICES [facility] (PCP) PACHECO PICKERING Jun 16, 2018 19:25
[2018-06-16] MEDS ORDERED: ALBUTEROL/IPRATROPIUM 3 ML NEB NEB ONE (19:40)
[2018-06-16] MEDS ORDERED: methylPREDNIS SUCC 125 MG/2ML IVP ONE (19:40)
[2018-06-16] MEDS ORDERED: NS(*) 0.9% 1000 ML BAG 1,000 ML IV ONE (19:40)
[2018-06-16 19:59] LABS: PLATELET COUNT, AUTOMATED 472 K/uL (150-450)
[2018-06-16] MEDS ORDERED: IOPAMIDOL 76% 100 ML INFUS BTL 100 ML ONE (20:23)
--- NOTE | 2018-06-16 21:48 | RADIOLOGY IMAGING REPORT ---
FACILITY: [facility] - [place] PATIENT NAME: Alina Flanagan : 1955 MR: [id number] V: [id number] EXAM DATE: ORDERING PHYSICIAN: PACHECO PICKERING TECHNOLOGIST: Location: [facility] [place] Patient: Alina Flanagan : 1955 Visit/Account:[id number] Date of Sevice: 06/16/2018 EXAMINATION: CT neck with IV contrast HISTORY: Shortness of breath. COMPARISON: Thyroid ultrasound from the same day. TECHNIQUE: Spiral scan was obtained from the hard palate through the upper chest during injection o f nonionic iodinated intravenous contrast. Sagittal and coronal reformatted images are also submitte d. CONTRAST: 75 mL of IV Isovue-370 One of the following dose optimization techniques was utilized in the performance of this exam: Autom ated exposure control; adjustment of the mA and/or kV according to the patient's size; or use of an i terative reconstruction technique. Specific details can be referenced in the facility's radiology C T exam operational policy. FINDINGS: Masses/lesions: There is a large heterogeneous mass centered at the left lobe of the thyroid measuri ng 5.4 x 4.7 x 4.4 cm. There is invasion of the mass into the subglottic trachea resulting in stenosi s of the subglottic tracheal lumen to 8 x 4 mm in axial dimensions along the mass. There are multiple enlarged heterogeneous lymph nodes along the thyroid and in the upper mediastinum, the largest node located posterior to the thyroid mass on the left measuring 1.9 cm in short axis. There is edema in t he retropharyngeal soft tissues along the hypopharynx. Airway: Stenosis of the subglottic airway as noted above due to invasion of the trachea by the thyro id mass. The trachea is also deviated towards the right due to the left thyroid mass. The upper esoph anurag is shifted towards the right due to the thyroid mass. The thyroid mass might also be invading th e wall of the esophagus. Vessels: Mild calcified plaque at the origin of the right subclavian artery mild plaque at the carot id bulbs and origins of the internal carotid arteries without flow-limiting stenosis. Musculoskeletal / Body wall: Multilevel disc degenerative changes in the cervical spine. Lymph node assessment: Several enlarged upper mediastinal lymph nodes and several enlarged heterogene ous lymph nodes along the thyroid. Visualized orbits / brain / paranasal sinuses: Small amount of fluid in the right maxillary sinus. Upper chest: Small bilateral lung nodules. IMPRESSION: Large heterogeneous mass centered in the left lobe of the thyroid which invades and narrows the subgl ottic trachea and abuts and might also be invading the upper esophagus. There is metastatic adenopath y in the neck along the thyroid and also in the upper mediastinum. 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 Multiple pulmonary nodules which most likely represent metastases. These findings were discussed with PACHECO PICKERING at 06/16/2018 9:31 PM. Report Dictated By: Nilesh Benedict MD at 06/16/2018 9:25 PM Report E-Signed By: Nilesh Benedict MD at 06/16/2018 9:45 PM [id number]
--- NOTE | 2018-06-16 21:54 | RADIOLOGY IMAGING REPORT ---
FACILITY: [facility] PATIENT NAME: Alina Flanagan : 1955 MR: [id number] V: [id number] EXAM DATE: ORDERING PHYSICIAN: PACHECO PICKERING TECHNOLOGIST: Location: [facility] Patient: Alina Flanagan : 1955 Visit/Account:[id number] Date of Sevice: 06/16/2018 EXAMINATION: CT chest with IV contrast HISTORY: Shortness of breath. COMPARISON: None. TECHNIQUE: Axial images were taken through the chest during injection of nonionic iodinated intrave nous contrast. Sagittal and coronal reformatted images are also submitted. CONTRAST: 75 mL of IV Isovue-370 One of the following dose optimization techniques was utilized in the performance of this exam: Autom ated exposure control; adjustment of the mA and/or kV according to the patient's size; or use of an i terative reconstruction technique. Specific details can be referenced in the facility's radiology C T exam operational policy. FINDINGS: Lungs / pleura: Approximately 12 noncalcified nodules in the lungs, the largest in the left upper lo be measuring 1.3 cm. No pleural effusion or pneumothorax. Mediastinum / thea: Small sliding hiatal hernia. Heart / pericardium: Negative. Vessels: Negative. Musculoskeletal / Body wall: Negative. Lymph node assessment: Multiple enlarged upper mediastinal lymph nodes and multiple enlarged heteroge neous lymph nodes along the thyroid. Lower neck: Large mass in the left lobe of the thyroid which invades the trachea causing stenosis of the subglottic trachea. Upper abdomen: Colonic diverticulosis. IMPRESSION: Large mass in the left lobe of the thyroid with metastatic adenopathy along the thyroid and in the up per mediastinum. 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 Report Dictated By: Nilesh Benedict MD at 06/16/2018 9:45 PM Report E-Signed By: Nilesh Benedict MD at 06/16/2018 9:51 PM WSN:[id number]
[2018-06-17 00:30] VITALS: BP 126/82
== END 2018-06-17 00:56 | disposition short-term general hospital (02) ==
LOC: ER 19:24
DX: E07.89 Other specified disorders of thyroid (principal)
CPT/HCPCS: 70491; 71260; 85025; 94640; 96361; 96374; 99285; J2930; J7030; J7620; Q9967

== ENCOUNTER → 2018-06-17 | Outpatient (REF) | LOC: AMB 03:00 | PROVIDERS: ATTEND Nurse Practitioner | DX: Z02.9 Encounter for administrative examinations, unspecified (principal) ==

== ENCOUNTER → 2018-07-20 | Outpatient (CLI) | payer OTHER ==
[~2018-07-20] MED LIST changes: +BINI15TA; +METH4TAB66 PO; +NS(*) 0.9% 1000 ML BAG 1,000 ML IV SCH; +ONDA4TAB9 PO; +[UNRECOGNIZED DRUG - CODE]
[2018-07-20 14:36] VITALS: BP 102/71
== END ==
LOC: SPU 14:26
PROVIDERS: ATTEND Physician Assistant
DX: E86.0 Dehydration (principal)
CPT/HCPCS: 96360; J7030

== ENCOUNTER 2018-08-06 18:07 | Inpatient (IN) | payer OTHER ==
[~2018-08-06] VITALS: Ht 170.2 cm; Wt 69.6 kg
[~2018-08-06 18:07] MED LIST changes: -DABR75CA; -LEVO75TA73 PO; -TRAM2TAB
--- NOTE | 2018-08-06 18:19 | ER Report ---
History and Physical Time Seen By MD: 18:18 HPI/ROS CHIEF COMPLAINT: fever, syncope HISTORY OF PRESENT ILLNESS: This is a 63 year old female. She arrived here in the ER by ambulance after having fevers/chills at home as well as a syncopal episode while in the bathtub trying to warm up. She has anaplastic thyroid cancer, metastatic lung cancer, and is on chemotherapy. The chemotherapy has been going well, with good reduction in tumor mass, but is causing significant side effects. She has intermittent fevers with the medicines. She has had to have IV hydration a couple of times this week. They did talk with Dr. Crandall's partner, , at [facility] who recommended coming to the ER. Her was on the phone with the when she had the syncopal episode, and he returned to the bathroom a few minutes later to find her unresponsive. She awoke and had just thought she had fallen asleep. She denies any shortness of breath. She has had some increased mucous from the tracheostomy. Her has recently had upper respiratory symptoms. She has ongoing nausea, and had an episode of emesis just before arrival and does not feel nauseated right now. She has developed some diarrhea today. Decreased urination due to dehydration, but no dysuria. Had a rash with the fever, which is now gone. Feels generally weak and tired. Denies headache. Allergies: Coded Allergies: No Known Drug Allergies (Unverified , 08/06/18) Home Meds Active Scripts Ondansetron 4 Mg Odt (ONDANSETRON 4 MG ODT) 4 Mg Tab.rapdis, 8 MG PO ONCE PRN for Nausea or Vomiting for 7 Days, #20 TAB 1 Refill Take 1 ODT sublingual Q 8 hours PRN chemo-induced N/V Prov:MAURI HODGE APRN,SURJIT 07/22/18 Levothyroxine Sodium (LEVOTHYROXINE SODIUM) 50 Mcg Tablet, 1 TAB PO DAILY, #90 TAB 0 Refills Prov:JEFFERY MONSIVAIS APRN [facility] 05/07/18 Reported Medications Trametinib Dimethyl Sulfoxide (MEKINIST) 2 Mg Tablet 08/06/18 Dabrafenib Mesylate (TAFINLAR) 75 Mg Capsule 08/06/18 Discontinued Reported Medications Binimetinib (Mektovi) 15 Mg Tablet, 150 MG DAILY 07/15/18 Encorafenib (Braftovi) 50 Mg Capsule, 450 MG DAILY 07/15/18 Discontinued Scripts Methylprednisolone (METHYLPREDNISOLONE) 4 Mg Tab.ds.pk, 4 MG PO DIRECTED for 6 Days, #1 PACK 1 Refill Prov:CELESTINA OWEN Jennifer BOLAÑOS 07/20/18 Reviewed Nurses Notes: Yes Smoking Status: Never Smoker Hx Substance Use Disorder: No Hx Alcohol Use: Yes (2-3 WINE DAILY) Constitutional Vital Sign - Last 24 Hours 08/06/18 08/06/18 08/06/18 08/06/18 18:12 18:13 18:15 18:26 Temp 103.1 Pulse 115 Resp 20 B/P (MAP) 89/75 89/75 (80) 75/42 (53) 73/61 (65) Pulse Ox 16 O2 Delivery Room Air 08/06/18 08/06/18 08/06/18 08/06/18 18:30 18:35 18:37 18:40 Pulse 104 B/P (MAP) 84/41 (55) 79/34 (49) 91/50 (64) Pulse Ox 96 08/06/18 08/06/18 08/06/18 08/06/18 18:45 18:50 18:55 19:00 B/P (MAP) 92/44 (60) 77/69 (72) 98/45 (62) 85/48 (60) 08/06/18 08/06/18 08/06/18 08/06/18 19:05 19:10 19:15 19:20 Pulse ??? B/P (MAP) 91/41 (58) 91/56 (68) 86/56 (66) 94/56 (69) Pulse Ox 96 08/06/18 08/06/18 08/06/18 08/06/18 19:25 19:30 19:35 19:40 Pulse ? B/P (MAP) 83/67 (72) 92/53 (66) 86/55 (65) Pulse Ox 94 08/06/18 08/06/18 08/06/18 08/06/18 19:50 19:55 20:00 20:05 Pulse 96 B/P (MAP) 85/49 (61) 85/49 (61) 84/42 (56) 86/43 (57) Pulse Ox 96 08/06/18 08/06/18 08/06/18 08/06/18 20:10 20:15 20:20 20:25 Pulse 96 B/P (MAP) 88/45 (59) 78/43 (55) 84/46 (59) 80/46 (57) Pulse Ox 94 90 08/06/18 08/06/18 08/06/18 08/06/18 20:30 20:35 20:40 20:45 B/P (MAP) 78/37 (51) 81/38 (52) 75/40 (52) 83/39 (54) Pulse Ox 91 08/06/18 08/06/18 08/06/18 08/06/18 20:50 20:55 21:00 21:05 Pulse 94 B/P (MAP) 78/46 (57) 69/57 (61) 78/47 (57) 84/51 (62) Pulse Ox 88 87 08/06/18 08/06/18 08/06/18 08/06/18 21:10 21:15 21:20 21:25 B/P (MAP) 86/54 (65) 87/43 (58) 79/48 (58) 74/46 (55) Pulse Ox 97 08/06/18 08/06/18 08/06/18 21:30 21:35 21:40 B/P (MAP) 77/42 (54) 78/62 (67) 80/48 (59) Pulse Ox 95 Intake and Output 08/06/18 08/06/18 08/07/18 15:00 23:00 07:00 Intake Total 2000 ml Balance 2000 ml Physical Exam General Appearance: The patient is alert. No acute distress. Eyes: Pupils are equal, round. No pallor, injection or icterus. ENT: Mucous membranes are moist. Normal oral mucosa. Posterior oropharynx is normal. Tracheostomy without large amount of secretions at this time. Neck: Supple and non tender. Respiratory: Lungs are clear to auscultation. Cardiovascular: Regular rate and rhythm. No murmurs, gallops or rubs. Normal capillary refill. Gastrointestinal: Abdomen is soft and non tender. Nondistended. Normal active bowel sounds. No costovertebral angle tenderness with percussion. Neurological: Alert and oriented x3. No focal neurologic deficits, generalized weakness. Skin: Warm and dry. No rashes. Musculoskeletal: Extremities are nontender. DIFFERENTIAL DIAGNOSIS: After history and physical exam, differential diagnosis was considered for fever in a patient with chemotherapy for thyroid cancer, with medications that cause these side effects, but also with an episode of syncope. Has tachycardia, hypotension as well as fever, concerning for sepsis. No obvious source based on history and physical exam today, most likely would be side effects of medications combined with upper respiratory given husbands recent symptoms. Will need to have labs obtained, and then speak with oncology about treatment at this time, coverage with antibiotics, and hospitalization versus home treatment. Medical Decision Making Data Points Result Diagram: 08/06/18 1802 08/06/18 1802 Laboratory Hematology Test 08/06/18 18:02 08/06/18 19:45 Red Blood Count 3.31 M/uL (4.17-5.56) Mean Corpuscular Volume 90.6 fL (80.0-96.0) Mean Corpuscular Hemoglobin 30.0 pg (26.0-33.0) Mean Corpuscular Hemoglobin Concent 33.1 g/dL (32.0-36.0) Red Cell Distribution Width 14.4 % (11.5-14.5) Mean Platelet Volume 8.1 fL (7.2-11.1) Neutrophils (%) (Auto) 86.6 % (39.4-72.5) Lymphocytes (%) (Auto) 4.3 % (17.6-49.6) Monocytes (%) (Auto) 2.8 % (4.1-12.4) Eosinophils (%) (Auto) 4.4 % (0.4-6.7) Basophils (%) (Auto) 1.9 % (0.3-1.4) Nucleated RBC Relative Count (auto) 0.0 /100WBC Neutrophils # (Auto) 6.0 K/uL (2.0-7.4) Lymphocytes # (Auto) 0.3 K/uL (1.3-3.6) Monocytes # (Auto) 0.2 K/uL (0.3-1.0) Eosinophils # (Auto) 0.3 K/uL (0.0-0.5) Basophils # (Auto) 0.1 K/uL (0.0-0.1) Nucleated RBC Absolute Count (auto) 0.00 K/uL Peripheral Blood Smear Yes Y/N Sodium Level 132 mmol/L (137-145) Potassium Level 3.6 mmol/L (3.5-5.0) Chloride Level 101 mmol/L (98-107) Carbon Dioxide Level 22 mmol/L (22-31) Blood Urea Nitrogen 24 mg/dl (7-18) Creatinine 1.10 mg/dl (0.52-1.04) Glomerular Filtration Rate Calc 50.0 Random Glucose 121 mg/dl (75-110) Calcium Level 8.5 mg/dl (8.4-10.2) Total Bilirubin 0.3 mg/dl (0.2-1.3) Aspartate Amino Transf (AST/SGOT) 128 U/L (0-35) Alanine Aminotransferase (ALT/SGPT) 101 U/L (0-56) Alkaline Phosphatase 143 U/L (0-126) Total Protein 5.8 g/dl (6.3-8.2) Albumin 3.0 g/dl (3.5-5.0) Urine Color Yellow Urine Clarity Slightly-cloudy Urine pH 5.0 pH (4.8-9.5) Urine Specific [place] 1.016 Urine Protein 30 mg/dL (NEGATIVE) Urine Glucose (UA) Negative mg/dL (NEGATIVE) Urine Ketones Negative mg/dL (NEGATIVE) Urine Blood Moderate (NEGATIVE) Urine Nitrite Negative (NEGATIVE) Urine Bilirubin Negative (NEGATIVE) Urine Urobilinogen Negative mg/dL (0.2-1.9) Urine Leukocyte Esterase Negative (NEGATIVE) Urine RBC None /HPF (0-2/HPF) Urine WBC 2 /HPF (0-5/HPF) Urine Squamous Epithelial Cells None /LPF (</=FEW) Urine Bacteria Negative /HPF (NONE-FEW) Urine Mucus Few /HPF (NONE-FEW) Chemistry Test 08/06/18 18:02 08/06/18 19:45 White Blood Count 7.0 k/uL (4.5-11.0) Red Blood Count 3.31 M/uL (4.17-5.56) Hemoglobin 9.9 g/dL (12.0-16.0) Hematocrit 30.0 % (34.0-47.0) Mean Corpuscular Volume 90.6 fL (80.0-96.0) Mean Corpuscular Hemoglobin 30.0 pg (26.0-33.0) Mean Corpuscular Hemoglobin Concent 33.1 g/dL (32.0-36.0) Red Cell Distribution Width 14.4 % (11.5-14.5) Platelet Count 157 K/uL (150-450) Mean Platelet Volume 8.1 fL (7.2-11.1) Neutrophils (%) (Auto) 86.6 % (39.4-72.5) Lymphocytes (%) (Auto) 4.3 % (17.6-49.6) Monocytes (%) (Auto) 2.8 % (4.1-12.4) Eosinophils (%) (Auto) 4.4 % (0.4-6.7) Basophils (%) (Auto) 1.9 % (0.3-1.4) Nucleated RBC Relative Count (auto) 0.0 /100WBC Neutrophils # (Auto) 6.0 K/uL (2.0-7.4) Lymphocytes # (Auto) 0.3 K/uL (1.3-3.6) Monocytes # (Auto) 0.2 K/uL (0.3-1.0) Eosinophils # (Auto) 0.3 K/uL (0.0-0.5) Basophils # (Auto) 0.1 K/uL (0.0-0.1) Nucleated RBC Absolute Count (auto) 0.00 K/uL Peripheral Blood Smear Yes Y/N Glomerular Filtration Rate Calc 50.0 Calcium Level 8.5 mg/dl (8.4-10.2) Total Bilirubin 0.3 mg/dl (0.2-1.3) Aspartate Amino Transf (AST/SGOT) 128 U/L (0-35) Alanine Aminotransferase (ALT/SGPT) 101 U/L (0-56) Alkaline Phosphatase 143 U/L (0-126) Total Protein 5.8 g/dl (6.3-8.2) Albumin 3.0 g/dl (3.5-5.0) Urine Color Yellow Urine Clarity Slightly-cloudy Urine pH 5.0 pH (4.8-9.5) Urine Specific [place] 1.016 Urine Protein 30 mg/dL (NEGATIVE) Urine Glucose (UA) Negative mg/dL (NEGATIVE) Urine Ketones Negative mg/dL (NEGATIVE) Urine Blood Moderate (NEGATIVE) Urine Nitrite Negative (NEGATIVE) Urine Bilirubin Negative (NEGATIVE) Urine Urobilinogen Negative mg/dL (0.2-1.9) Urine Leukocyte Esterase Negative (NEGATIVE) Urine RBC None /HPF (0-2/HPF) Urine WBC 2 /HPF (0-5/HPF) Urine Squamous Epithelial Cells None /LPF (</=FEW) Urine Bacteria Negative /HPF (NONE-FEW) Urine Mucus Few /HPF (NONE-FEW) Urinalysis Test 08/06/18 19:45 Urine Color Yellow Urine Clarity Slightly-cloudy Urine pH 5.0 pH (4.8-9.5) Urine Specific [place] 1.016 Urine Protein 30 mg/dL (NEGATIVE) Urine Glucose (UA) Negative mg/dL (NEGATIVE) Urine Ketones Negative mg/dL (NEGATIVE) Urine Blood Moderate (NEGATIVE) Urine Nitrite Negative (NEGATIVE) Urine Bilirubin Negative (NEGATIVE) Urine Urobilinogen Negative mg/dL (0.2-1.9) Urine Leukocyte Esterase Negative (NEGATIVE) Urine RBC None /HPF (0-2/HPF) Urine WBC 2 /HPF (0-5/HPF) Urine Squamous Epithelial Cells None /LPF (</=FEW) Urine Bacteria Negative /HPF (NONE-FEW) Urine Mucus Few /HPF (NONE-FEW) EKG/Imaging EKG Interpretation 12 lead EKG: Rhythm: Sinus tachycardia, rate 104 [place]: normal QRS: Low-voltage ST segments: No ST elevation or depression noted Imaging INDICATION: fever, metastatic thyroid cancer. DATE: 08/06/2018 7:22 PM. TECHNIQUE: CHEST SINGLE AP COMPARISON: Chest radiographs June 15, 2018 FINDINGS: Stable cardiac silhouette. No effusion, consolidation, or pneumothorax. The tracheostomy tube is midline. IMPRESSION: No acute findings. Report Dictated By: Liseth Flores MD at 08/06/2018 7:22 PM ED Course/Re-evaluation Clinical Indication for ER IV: Hydration, IV Access ED Course Patient was initially treated with a liter of normal saline, she was obviously dehydrated and her blood pressure was low. Sign suggesting sepsis. Lactic acid initially 4.2. EKG was showing sinus tachycardia but otherwise no abnormality. Unable to find source of infection on physical exam. Chest x-ray was negative. Labs supported dehydration, but white count is normal. Mild anemia. After e verything was back, discussed the case with oncology, Dr. Lezama, at [facility]. Most likely fever due to oncology medication, but cannot rule out infection. Also concern given the hypotnesion and syncope. After our discussion, we agreed that the patient likely would need to stay for IV fluids, monitoring, and need for IV antibiotics while cultures are awaited. Discussed the case with our hospitalist, Dr. Smith. Will cover with Cefepime and Vancomycin. Decision to Disposition Date: August 06, 2018 Decision to Disposition Time: 21:32 Depart Departure Latest Vital Signs Vital Signs Date Time Temp Pulse Resp B/P (MAP) Pulse Ox O2 Delivery O2 Flow Rate FiO2 08/06/18 21:40 80/48 (59) 08/06/18 21:35 95 08/06/18 21:05 94 08/06/18 18:12 103.1 20 Room Air Impression: Primary Impression: Fever Additional Impressions: Syncope Dehydration Condition: Improved Disposition: Admitted from ER Referrals: JEFFERY MONSIVAIS APRN [facility] (PCP) Problem Qualifiers Primary Impression: Fever Fever type: due to other condition Qualified Codes: R50.81 - Fever presenting with conditions classified elsewhere Additional Impressions: Syncope Syncope type: unspecified Qualified Codes: R55 - Syncope and collapse SHARA CARTAGENA MD August 06, 2018 18:18
[2018-08-06] MEDS ORDERED: NS(*) 0.9% 1000 ML BAG 1,000 ML IV ONE ×3 (18:20→21:35)
[2018-08-06 18:29] LABS: PLATELET COUNT, AUTOMATED 157 K/uL (150-450)
[2018-08-06] MEDS ORDERED: DABR75CA (18:36)
[2018-08-06] MEDS ORDERED: TRAM2TAB (18:36)
[2018-08-06] MEDS ORDERED: EMS NS 0.9%(*) 1000 ML BAG 1,000 ML IV ONE (18:45)
--- NOTE | 2018-08-06 19:27 | RADIOLOGY IMAGING REPORT ---
FACILITY: [facility] [place] PATIENT NAME: Alina Flanagan : 1955 MR: [id number] V: [id number] EXAM DATE: ORDERING PHYSICIAN: SHARA CARTAGENA TECHNOLOGIST: Location: [facility] [place] Patient: Alina Flanagan : 1955 Visit/Account:[id number] Date of Sevice: 08/06/2018 INDICATION: fever, metastatic thyroid cancer. DATE: 08/06/2018 7:22 PM. TECHNIQUE: CHEST SINGLE AP COMPARISON: Chest radiographs June 15, 2018 FINDINGS: Stable cardiac silhouette. No effusion, consolidation, or pneumothorax. The tracheostomy tu be is midline. IMPRESSION: No acute findings. Report Dictated By: Liseth Flores MD at 08/06/2018 7:22 PM Report E-Signed By: Liseth Flores MD at 08/06/2018 7:24 PM WSN:[id number]
[2018-08-06] MEDS ORDERED: ACETAMINOPHEN 325 MG TAB PO ONE (19:35)
--- NOTE | 2018-08-06 20:55 | EKG ---
FACILITY: [facility] [place] PATIENT NAME: SCOTTY ROMAN : [id number] MR: [id number] V: [id number] EXAM DATE: ORDERING PHYSICIAN: SHARA CARTAGENA TECHNOLOGIST: TEJA Melo Reason : Blood Pressure : / mmHG Vent. Rate : 104 BPM Atrial Rate : 104 BPM P-R Int : 152 ms QRS Dur : 086 ms QT Int : 326 ms P-R-T Axes : 048 045 064 degrees QTc Int : 428 ms Sinus tachycardia Low voltage QRS Borderline ECG When compared with ECG of 15-JUN-2018 08:52, No significant change was found Confirmed by Brandan Tang ([id number]) on 08/07/2018 7:47:43 AM Referred By: Confirmed By:Brandan Curry
[2018-08-06] MEDS ORDERED: VANCOMYCIN(*) 1 GM VIAL 1.5 GM in NS(*) 0.9% 250 ML BAG 250 ML IVPB ONE (21:35)
[2018-08-06 22:28] VITALS: BP 95/55
[2018-08-06] MEDS ORDERED: ACETAMINOPHEN 500 MG TAB PO PRN (22:30)
[2018-08-06] MEDS ORDERED: TAFINLAR 75 MG PO SCH (22:30)
[2018-08-06] MEDS ORDERED: CEFEPIME HCL 2 GM VIAL IVP SCH (22:30)
[2018-08-06] MEDS ORDERED: FLUSH 10 ML SYR IVP PRN (22:30)
[2018-08-06] MEDS ORDERED: MEKINIST 2 MG PO SCH (22:30)
[2018-08-06 22:45] VITALS: BP 90/55
[2018-08-06 23:00] VITALS: BP 96/61
[2018-08-06 23:15] VITALS: BP 90/55
[2018-08-06 23:30] VITALS: BP 85/57
--- NOTE | 2018-08-06 23:40 | History & Physical ---
History of Present Illness Chief Complaint fever History of Present Illness 63F presented with one week history of fever and chills. 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 Reports fever and chills periodically since Friday. Fevers to 103F. Denies any specific localizing symptoms of infection, mild URI symptoms with non-productive cough. Relapsing rash on bilateral calves before she gets chills. Labs show normal [facility], she is hypotensive improving with fluids, LA is elevated at 4. Discussed with oncologist parts counter salesperson for Dr Hernandez who recommends admission for antibiotics while awaiting cultures but believes this very likely a drug reaction. History Problems: (1) Anaplastic carcinoma of thyroid Home Meds Active Scripts Ondansetron 4 Mg Odt (ONDANSETRON 4 MG ODT) 4 Mg Tab.rapdis, 8 MG PO ONCE PRN for Nausea or Vomiting for 7 Days, #20 TAB 1 Refill Take 1 ODT sublingual Q 8 hours PRN chemo-induced N/V Prov:MAURI HODGE APRN,ORIENTAL RUG STRETCHER 07/22/18 Levothyroxine Sodium (LEVOTHYROXINE SODIUM) 50 Mcg Tablet, 1 TAB PO DAILY, #90 TAB 0 Refills Prov:JEFFERY MONSIVAIS APRN ORIENTAL RUG STRETCHER-C 05/07/18 Reported Medications Trametinib Dimethyl Sulfoxide (MEKINIST) 2 Mg Tablet 08/06/18 Dabrafenib Mesylate (TAFINLAR) 75 Mg Capsule 08/06/18 Discontinued Reported Medications Binimetinib (Mektovi) 15 Mg Tablet, 150 MG DAILY 07/15/18 Encorafenib (Braftovi) 50 Mg Capsule, 450 MG DAILY 07/15/18 Discontinued Scripts Methylprednisolone (METHYLPREDNISOLONE) 4 Mg Tab.ds.pk, 4 MG PO DIRECTED for 6 Days, #1 PACK 1 Refill Prov:CELESTINA OWEN PA-C 07/20/18 Allergies: Coded Allergies: No Known Drug Allergies (Unverified , 08/06/18) Patient History: FH: COPD (chronic obstructive pulmonary disease) FATHER Smoking Status: Never Smoker Hx Alcohol Use: Yes (2-3 WINE DAILY) Social Drug Use: Never Review of Systems Constitutional: Fever, Chills Respiratory: Cough; No Shortness of Breath Gastrointestinal: No Nausea, No Vomiting; Diarrhea Exam Vital Signs Vital Signs Date Time Temp Pulse Resp B/P (MAP) Pulse Ox O2 Delivery O2 Flow Rate FiO2 08/06/18 21:55 86/56 (66) 08/06/18 21:50 90 08/06/18 21:05 94 08/06/18 18:12 103.1 20 Room Air General Appearance: Alert, Awake, No Acute Distress Neuro: No Gross deficits Cardiovascular: Normal Rhythm & Peripheral Pulses Respiratory: No Respiratory Distress (+ trach) GI: Abd Soft and Non-Tender Musculoskeletal: No Weakness/Pain Extremities: Soft and Non Tender, Warm, Pulses, Perfused Integumentary: Skin Intact without Lesion / Mass Medical Decision Making Data Points Result Diagram: 08/06/18 18008/06/181801 Assessment and Plan Problems: (1) SIRS (systemic inflammatory response syndrome) Assessment & Plan: No obvious site infection, this appears likely an adverse reaction to dabrafenib and trametinib combination therapy. BP responded to fluid bolus. Will monitor in ICU and support BP if needed. LA elevated and repeat pending. Empiric cefepime and vancomycin while await blood culture consider stop Abx if negative 24-[address] Discuss plan with Dr Hernandez when available tomorrow. Holding dabrafenib per review of recommendation to hold for fever > 101.3, continue trametinib. (2) Fever Status: Acute Assessment & Plan: Likely adverse drug effect, fevers > 104F are not unusual per review of literature. Broad spectrum ABx but low thresh hold to stop if negative Cx at 24-48 hours. (3) Hypotension Assessment & Plan: Known adverse reaction to combination therapy. Responded to IV fluid bolus, monitor and support if necessary. Monitor Cr and UOP. (4) Lactic acidosis Assessment & Plan: Likely secondary to hypotension, will monitor. BP improved with IV fluids. Venous Thromboembolism Antithrombotics Is Pt On Any Antithrombotics?: Yes Exam Sepsis Risk: Possible Severe Sepsis Risk Problem Qualifiers (1) Fever: Fever type: due to other condition Qualified Codes: R50.81 - Fever presenting with conditions classified elsewhere JOSE LUIS BLOOD DO August 06, 2018 23:19
[2018-08-06 23:45] VITALS: BP 92/58
[2018-08-07] VITALS (49 sets, daily range): BP systolic 65–104; BP diastolic 44–73; Ht 170.2 cm; Wt 69.6 kg
[2018-08-07 05:02] LABS: PLATELET COUNT, AUTOMATED 117 K/uL (150-450)
[2018-08-07] MEDS ORDERED: MEKINIST 2 MG PO SCH (06:00)
[2018-08-07] MEDS ORDERED: LEVOTHYROXINE SOD 0.05 MG TAB PO SCH (06:00)
[2018-08-07] MEDS ORDERED: LEVO75TA73 PO (06:02)
[2018-08-07] MEDS ORDERED: LEVOTHYROXINE SOD 0.025 MG TAB PO ONE (06:05)
[2018-08-07] MEDS ORDERED: ENOXAPARIN 40 MG/0.4ML SYR SC SCH (09:00)
[2018-08-07] MEDS ORDERED: VANCOMYCIN(*) 1 GM VIAL 1 GM in NS(*) 0.9% 250 ML BAG 250 ML IVPB SCH (09:00)
--- NOTE | 2018-08-07 09:43 | Hospitalist Progress Note ---
Subjective Progress Notes Subjective She, overall, feels improved. No fevers overnight. No focal symptoms. Physical Exam Vital Signs Date Time Temp Pulse Resp B/P (MAP) Pulse Ox O2 Delivery O2 Flow Rate FiO2 08/07/18 06:37 70 08/07/18 06:30 19 85/62 (70) 95 Room Air 08/07/18 06:15 2.0 08/07/18 02:30 97.8 Intake and Output 08/07/18 07:00 Intake Total 3560 ml Output Total 550 ml Balance 3010 ml Intake Oral 360 ml IV Total 3200 ml Output Urine Total 550 ml # Voids 2 General Appearance: Alert, Awake, No Acute Distress (Mild wob) Cardiovascular: Regular Rate and Rhythm Respiratory: Other (Insp crackles to mid lung bilaterally) Extremities: No Edema Result Diagram: 08/07/1844708/07/18447 Assessment and Plan Problems: (1) SIRS (systemic inflammatory response syndrome) Assessment & Plan: No obvious site infection, this appears likely an adverse reaction to dabrafenib and trametinib combination therapy. BP responded to fluid bolus. She was monitored in ICU and put on empiric cefepime and vancomycin. No source of infection and no fevers overnight. Dr Hernandez (Oncology) recommends holding both medications for a week and they will follow-up with her about restarting. Will stop those medications, transfer to the medical floor and follow symptoms. If she continues to be afebrile and feeling well, then she possibly could go home this afternoon. (2) Fever Status: Acute Assessment & Plan: She had fevers for about a week and then developed rigors. See above. (3) Hypotension Assessment & Plan: Known adverse reaction to combination therapy. Responded to IV fluid bolus, monitor and support if necessary. Monitor Cr and UOP. Lactate now, wnl. Exam Sepsis Risk: No Definite Risk Problem Qualifiers (1) Fever: Fever type: due to other condition Qualified Codes: R50.81 - Fever presenting with conditions classified elsewhere TESFAYE BOYLE MD August 07, 2018 09:43
[2018-08-07] MEDS ORDERED: CEFEPIME HCL 2 GM VIAL IVP SCH (11:00)
--- NOTE | 2018-08-07 14:03 | Hospitalist Depart ---
Discharge Summary Reason for Hosp/Final Diag: (1) SIRS (systemic inflammatory response syndrome) Hospital Course & Plan: No obvious site infection, this is likely an adverse reaction to dabrafenib and trametinib combination therapy. BP responded to fluid bolus. She was monitored in ICU and put on empiric cefepime and vancomycin. No source of infection and no fevers overnight. No growth to date from blood cultures. Cefepime and vancomycin stopped. Dr Hernandez (Oncology) recommends holding both medications for a week and they will follow-up with her about restarting them. She is safe to go home with close observation of symptoms. Se e below. (2) Fever Status: Resolved Hospital Course & Plan: She had fevers for about a week and then developed rigors. See above. (3) Hypotension Status: Resolved Hospital Course & Plan: Known adverse reaction to combination therapy. Responded to IV fluid bolus. Creatinine wnl. Lactate now, wnl. (4) Anemia Status: Acute Hospital Course & Plan: Hgb trending down since 06/15/18. Likely, related to treatment for thyroid cancer. CBC on 08/10 (5) Thrombocytopenia Status: Acute Hospital Course & Plan: Counts were high on 06/16/18. Now mildly low. CBC on 08/10 (6) Elevated LFTs Status: Acute Hospital Course & Plan: Etiology unclear. Likely related to treatment for thyroid cancer. CMP on 08/10. Departure Weight (Pounds): 153 Weight (Ounces): 8.0 Result Diagram: 08/07/1844708/07/18447 Item Value Date Time White Blood Count 7.0 k/uL 08/06/18 180 White Blood Count 5.6 k/uL 08/07/18 0448 Hemoglobin 8.2 g/dL *L 08/07/18447 Hemoglobin 9.9 g/dL L 08/06/18 180 Neutrophils (%) (Auto) 86.6 % H 08/06/18 180 Neutrophils (%) (Auto) 69.7 % 08/07/18447 Platelet Count 117 K/uL L 08/07/18447 Platelet Count 157 K/uL 08/06/18 1802 Blood Urea Nitrogen 24 mg/dl H 08/06/18 1802 Creatinine 1.10 mg/dl H 08/06/18 1802 Lactate 4.2 mmol/L *H 08/06/18 1802 Lactate 1.0 mmol/L 08/06/18 2337 Calcium Level 8.5 mg/dl 08/06/18 1802 Aspartate Amino Transf (AST/SGOT) 128 U/L H 08/06/18 1802 Alanine Aminotransferase (ALT/SGPT) 101 U/L H 08/06/18 1802 Alkaline Phosphatase 143 U/L H 08/06/18 1802 Aspartate Amino Transf (AST/SGOT) 85 U/L H 08/07/18 0448 Alanine Aminotransferase (ALT/SGPT) 85 U/L H 08/07/18 0448 Alkaline Phosphatase 123 U/L 08/07/18 0448 Total Bilirubin < 0.1 mg/dl L 08/07/18 044 Total Bilirubin 0.3 mg/dl 08/06/18 180 Thyroid Stimulating Hormone (TSH) 3.37 uIU/ml 08/06/18 180 Blood Urea Nitrogen 17 mg/dl 08/07/18 0448 Creatinine 0.80 mg/dl 08/07/18 0448 Urine Culture - No growth from 08/06/18 Blood Culture - No growth x2 from 08/06/18 Imaging 08/06/18 CXR - No acute findings. EKG Vent. Rate : 104 BPM Atrial Rate : 104 BPM P-R Int : 152 ms QRS Dur : 086 ms QT Int : 326 ms P-R-T Axes : 048 045 064 degrees QTc Int : 428 ms Sinus tachycardia Low voltage QRS Borderline ECG When compared with ECG of 15-JUN-2018 08:52, No significant change was found Confirmed by Brandan Tang ([id number]) on 08/07/2018 7:47:43 AM Condition: Improved Discharge: Home Discharge Instructions Home Meds Active Scripts Ondansetron 4 Mg Odt (ONDANSETRON 4 MG ODT) 4 Mg Tab.rapdis, 8 MG PO ONCE PRN for Nausea or Vomiting for 7 Days, #20 TAB 1 Refill Take 1 ODT sublingual Q 8 hours PRN chemo-induced N/V Prov:MAURI HODGE APRN,BAKERY ASSOCIATE 07/22/18 Reported Medications Levothyroxine Sodium (LEVOTHYROXINE SODIUM) 75 Mcg Tablet, 75 MCG PO QDAY, TAB 08/07/18 Discontinued Reported Medications Trametinib Dimethyl Sulfoxide (MEKINIST) 2 Mg Tablet 08/06/18 Dabrafenib Mesylate (TAFINLAR) 75 Mg Capsule 08/06/18 Binimetinib (Mektovi) 15 Mg Tablet, 150 MG DAILY 07/15/18 Encorafenib (Braftovi) 50 Mg Capsule, 450 MG DAILY 07/15/18 Discontinued Scripts Levothyroxine Sodium (LEVOTHYROXINE SODIUM) 50 Mcg Tablet, 1 TAB PO DAILY, #90 TAB 0 Refills Prov:JEFFERY MONSIVAIS APRN-C 05/07/18 Methylprednisolone (METHYLPREDNISOLONE) 4 Mg Tab.ds.pk, 4 MG PO DIRECTED for 6 Days, #1 PACK 1 Refill Prov:CELESTINA OWEN PA-C 07/20/18 Diet: Regular Activity: As Tolerated Special Instructions: Don't restart Trametinib or Dabrafenib until cleared by Dr. Hernandez. Contact Dr. Hernandez office in a couple of days to schedule follow up. Go to the ER for fevers, chills, dysuria, new cough, shortness of breath. CBC/CMP on 08/10 to follow anemia, low platelet count and elevated liver function tests Copies to: JEFFERY MONSIVAIS APRN-Mj ; Venous Thromboembolism Antithrombotics Is Pt On Any Antithrombotics?: Yes Problem Qualifiers (1) Fever: Fever type: due to other condition Qualified Codes: R50.81 - Fever presenting with conditions classified elsewhere TESFAYE BOYLE MD August 07, 2018 14:03
[2018-08-08] MEDS ORDERED: LEVOTHYROXINE SOD 0.05 MG TAB PO SCH (06:00)
== END 2018-08-07 14:35 | disposition home or self-care (01) | DRG 641 ==
LOC: ER 18:21 → ICU 21:40
PROVIDERS: ADMIT Internal Medicine; ATTEND Internal Medicine
DX: E87.2 Acidosis (principal); R65.10 Systemic inflammatory response syndrome (SIRS) of non-infectious origin without acute organ dysfunction; C78.00 Secondary malignant neoplasm of unspecified lung; C73 Malignant neoplasm of thyroid gland; T45.1X5A Adverse effect of antineoplastic and immunosuppressive drugs, initial encounter; I95.2 Hypotension due to drugs; D64.81 Anemia due to antineoplastic chemotherapy; D69.6 Thrombocytopenia, unspecified; R79.89 Other specified abnormal findings of blood chemistry; E86.0 Dehydration; R55 Syncope and collapse; Y92.002 Bathroom of unspecified non-institutional (private) residence as the place of occurrence of the external cause
CPT/HCPCS: 36415; 71045; 81001; 82040; 82247; 82310; 82374; 82435; 82565; 82947; 83605; 84075; 84132; 84155; 84295; 84443; 84450; 84460; 84520; 85025; 87040; 87088; 93005; 96361; 96365; 96375; 99285; J0692; J1650; J3370; J7030; J7050

== ENCOUNTER → 2018-08-06 | Outpatient (CLI) | payer OTHER ==
[~2018-08-06] MED LIST changes: +DABR75CA; +LEVO75TA73 PO; -NS(*) 0.9% 1000 ML BAG 1,000 ML IV SCH; +TRAM2TAB
[2018-08-07 16:00] VITALS: BMI 24.0
== END ==
LOC: AMB 17:43
PROVIDERS: ATTEND Nurse Practitioner
DX: R53.1 Weakness (principal); R42 Dizziness and giddiness
CPT/HCPCS: A0425; A0427

== ENCOUNTER → 2018-08-10 | Outpatient (CLI) | payer OTHER ==
[2018-08-07 16:00] VITALS: BMI 24.0
[~2018-08-10] MED LIST changes: +DABR75CA; +LEVO75TA73 PO; +TRAM2TAB
[2018-08-10 08:52] LABS: PLATELET COUNT, AUTOMATED 216 K/uL (150-450)
== END ==
LOC: LAB 08:36
PROVIDERS: ATTEND Internal Medicine
DX: D64.9 Anemia, unspecified (principal); D69.6 Thrombocytopenia, unspecified; R94.5 Abnormal results of liver function studies
CPT/HCPCS: 36415; 82040; 82247; 82310; 82374; 82435; 82565; 82947; 84075; 84132; 84155; 84295; 84450; 84460; 84520; 85025

== ENCOUNTER → 2018-09-22 | Outpatient (CLI) | payer OTHER ==
[2018-08-07 16:00] VITALS: BMI 24.0
[~2018-09-22] MED LIST changes: +AMOX-559 PO; +DABR75CA PO; +DOXY-179 PO; +IPRA3AMP10 IH; +TRAM2TAB PO
--- NOTE | 2018-09-22 14:41 | RADIOLOGY IMAGING REPORT ---
FACILITY[place] [facility] [place]IENT NAME: Alina Flanagan : 1955 MR: [id number] V: [id number] EXAM DATE: ORDERING PHYSICIAN: HAYDEN CURIEL TECHNOLOGIST: Location: [facility] Patient: Alina Flanagan : 1955 Visit/Account:[id number] Date of Sevice: 09/22/2018 Exam type: CHEST PA LAT History: cough Comparison: Single view chest August 06, 2018. And chest CT June 16, 2018 Findings: Many of the pulmonary nodule seen on the prior CT were better depicted by that imaging modality. The re is a 1.3 cm nodule in the right midlung field which is increased from 5 mm on the prior chest radi ograph. There is no evidence of pleural effusions or focal infiltrates. The cardiac silhouette is n ormal in size. The tracheostomy tube in place IMPRESSION: 1. One of the pulmonary nodules in the right midlung field has increased in size when compared to Ma 2018 concerning for worsening metastases Report Dictated By: Abimbola Noe MD at 09/22/2018 2:30 PM Report E-Signed By: Abimbola Noe MD at 09/22/2018 2:35 PM WSN:PAT
== END ==
LOC: RAD 11:52
PROVIDERS: ATTEND Otolaryngology
DX: R91.8 Other nonspecific abnormal finding of lung field (principal)
CPT/HCPCS: 71046

== ENCOUNTER → 2018-09-23 | Outpatient (CLI) | payer OTHER ==
[2018-08-07 16:00] VITALS: BMI 24.0
== END ==
LOC: LAB 11:39
PROVIDERS: ATTEND Otolaryngology
DX: J04.10 Acute tracheitis without obstruction (principal)
CPT/HCPCS: 87070

== ENCOUNTER 2018-10-19 14:00 | Outpatient (RCR) | payer OTHER ==
--- NOTE | 2018-07-23 20:18 | ONCOLOGY CONSULTATION ---
EVENT DATE: July 22, 2018 REASON FOR CONSULTATION Patient was referred to us by Dr. Hernandez at [facility] in [place]. 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 It was recommended that she establish care with us locally in order to help with supportive care medications. DIAGNOSES 1. 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 2. Malignant neoplasm, metastatic to left lung. 3. Tracheostomy dependent. 4. Drug-induced fever. ONCOLOGY HISTORY * 06/15/18: Thyroid biopsy in [place] consistent with squamous variant of anaplastic thyroid cancer. * 06/17/18: Transfer to [facility] with emergent tracheal biopsy consistent with ATC BRAF V600E mutation positive. * 06/19/18: Starts Braftovi/Mektovi (samples supplied). * 07/16/18: Starts Quad Shot RT. HISTORY OF PRESENT ILLNESS Mrs. Robison is a 63-year-old woman who presented to [facility] for evaluation and treatment of anaplastic thyroid cancer. She was admitted to [facility] in May and required emergency trach. She was subsequently found to have BRAF [id number] ATC and started Braftovi/Mektovi while awaiting prescription authorization for dabrafenib/trametinib. Since starting Braftovi/Mektovi, she has been doing better. She has been eating and drinking fairly well. She feels that her neck mass has decreased significantly. Her side effects with treatment were fatigue as well as fever up to 102 degrees Fahrenheit without other signs or symptoms of infection. Her ECOG performance status has been 1. She has good support by her . She did require IV fluids through our office earlier this week secondary to significant fatigue. She also has established care with Dr. Gutierrez with ENT. She was seen by Dr. Gutierrez earlier this week. She was started on a Medrol Dosepak, which she continues on today. This has made her feel significantly better. She is here today for consultation to establish care locally. She will be a patient of Dr. Wu, whom she will meet with briefly after our visit today, due to scheduling conflict. PAST MEDICAL HISTORY 1. Hypothyroidism. 2. Thyroid cancer, anaplastic thyroid cancer. PAST SURGICAL HISTORY Tracheostomy in emergent setting in 05/2018. FAMILY HISTORY COPD in father. SOCIAL HISTORY She is a never smoker. She drinks alcohol approximately two to three times per week. She is a never substance user/social drug user. She is and has two adult children. She does have grandchildren. One of her adult children lives here locally in [place], and one lives in [place]. Apparently, one of her grandchildren has been ill with leukemia. MEDICATIONS 1. Dabrafenib (Tafinlar) 75 mg capsule. 2. Trametinib (Mekinist) 2 mg tablet. 3. Levothyroxine 15 mcg daily. REVIEW OF SYSTEMS GENERAL: In general, this is a pleasant 63-year-old woman who denies any recent high fevers with the exception of low-grade, 99-degree temperatures, intermittent, but no recent infections or signs or symptoms of infection. She has had fevers as high as 102 in the past related to treatment with Braftovi/Mektovi. She believes that her energy level has improved. She is eating and drinking better. HEENT: She had some vision changes when she first initiated Braftovi and Mektovi. This was in the form of spots and decreased vision. This has improved. No tinnitus. No abnormal nasal drainage. She does have some mild voice changes and hoarseness, some neck stiffness, and some mild dysphagia. NECK: Mild neck stiffness, improving. RESPIRATORY: She denies any shortness of breath or significant cough or pleuritic chest pain. No hemoptysis. She does have a trach. CARDIOVASCULAR: She denies any chest pain, syncope, or presyncope. GASTROINTESTINAL: No abdominal pain. She had some mild nausea earlier this week and has had some mild nausea throughout treatment, but none at this time. No vomiting. No bright red blood per rectum or melena. She does have some constipation, which is controlled with Colace and MiraLAX daily. No diarrhea. Appetite has improved over the last couple of days. GENITOURINARY: No dysuria or hematuria. NEUROLOGIC: She denies any headache or seizure-like activity. No paresthesias. PSYCHIATRIC: She has some mild anxiety and situational depression related to treatment. She denies any severe anxiety, severe depression, suicidal or homicidal ideation. HEMATOLOGIC/LYMPHATIC: No free bleeding or easy bruising. Positive for adenopathy, which has been improving. SKIN: She denies any rash or suspicious lumps or bumps. Remainder of a 12-point review of systems is performed today and is otherwise negative. PHYSICAL EXAMINATION VITAL SIGNS: Weight 63.6 kg. Height 169 cm. Temperature 97.3, P 69, R 14, BP 102/69, oxygen saturation 96% room air. GENERAL: In general, this is a pleasant 63-year-old woman who appears slightly fatigued and thin, but otherwise appears to be in no acute distress. HEAD: Atraumatic, normocephalic. EYES: Sclerae anicteric. ENT, MOUTH: Moist mucous membranes. No mucositis. NECK: Supple. Thyromegaly is present. No tracheal deviation present. Tracheostomy is intact, clean, dry, and within normal limits. Lymphadenopathy is improving to the neck. RESPIRATORY: Clear breath sounds, diminished in the left lower lobe. No focal findings. CARDIOVASCULAR: Regular rate and rhythm. ABDOMEN: Soft, nontender, nondistended. Bowel sounds positive x4. LYMPHATICS: Positive for cervical adenopathy. NEUROLOGIC: Patient is awake, alert, and oriented x3. PSYCHIATRIC: Mood and affect are appropriate. DERM: No rash. No petechiae or purpura. MUSCULOSKELETAL: Ambulation is steady. LABORATORY No labs today. IMAGING Outside scan per [facility] note: 1. CT neck 05/2018: Large thyroid mass. 2. CT lung 05/2018: Lung metastases. PATHOLOGY Per [facility] records: Consistent with anaplastic thyroid cancer, BRAF V600E mutation positive. IMPRESSION AND PLAN This is a pleasant 63-year-old woman with stage IVC BRAF V600E mutated anaplastic thyroid carcinoma (ATC). She initiated Braftovi/Mektovi in the hospital in early May 2018 as she did necessitate emergent tracheostomy placement. She remains with tracheostomy and is tolerating this well. She is now under the care of Dr. Matt moon with ENT, and he will be managing tracheostomy followup and changes. She was placed on Braftovi/Mektovi as they were awaiting insurance approval for dabrafenib/trametinib. She was provided a prescription and actually just started Day 1, Cycle #1 with dabrafenib and trametinib earlier today in the morning. She is aware of how to take these, but we did again review how to properly take these medications and reviewed common side effects. She has necessitated intravenous fluid hydration and required fluids earlier this week. Apparently, she has had some difficulty with dizziness, fatigue, and exhaustion, as well as hypotension. Hydration earlier this week significantly helped improve her symptoms, as did a Medrol Dosepak which she is currently on. She has not had any nausea recently, but has had some in the past. She does not have any antiemetics at home. After our visit and intake, I did have the patient formally meet with Dr. Wu. She is establishing care with us locally so we can help provide supportive care medications as needed. She will be following up with Dr. Hernandez in [place] on 08/03/18. She will have remapping done on the same day on 08/03/18 to evaluate for possible further radiotherapy. She received radiation on 07/06/18 and 07/07/18. 1. Stage IVC BRAF V600E mutated anaplastic thyroid carcinoma (ATC). She initiated Day 1, Cycle #1 with dabrafenib/trametinib earlier today. She will continue on this. Hopefully, she will have a good response as she did have quite a good response to Braftovi and Mektovi which were started while inpatient. 2. She is aware of signs and symptoms related to BRAF inhibitor and MEK therapy and is aware to notify us for any signs of infection. She is aware that elevated temperature is quite common, though she is still to notify us. 3. Nausea: I have electronically prescribed a course of Zofran OTD 8 mg to her local [facility] for her to have on hand at home in case of any future nausea. 4. No further hydration will be ordered today as patient is feeling quite well. She is aware that she is to instruct us early in the morning if she feels that she does need hydration. We would like to follow up with her every couple of weeks as needed. 5. ENT: Patient will continue followup with Dr. Gutierrez with ENT regarding tracheostomy care. She reports having a good visit with him and likes him quite a bit. 6. We discussed our role here locally in regards to her treatment plan and supportive care. We are here to help her throughout her journey with whatever she needs. 7. Patient and her did meet with Dr. Wu after our visit in consultation today. 8. She will return to clinic in approximately four weeks for followup with MD. KIRKLAND
[2018-08-05 09:27] VITALS: BP 83/50
[2018-08-05] MEDS: LIDOCAINE/SOD BICARB 8.4% SYR ID PRN (09:37)
[2018-08-07 16:00] VITALS: Wt 60.5 kg
[2018-08-18 11:21] VITALS: BP 106/60
[2018-08-18] MEDS: LIDOCAINE/SOD BICARB 8.4% SYR ID PRN (11:23)
[2018-08-18] MEDS: NS(*) 0.9% 1000 ML BAG 1,000 ML IV PRN ×2 (11:49→13:20)
[2018-08-18 14:05] VITALS: BP 110/76
--- NOTE | 2018-08-19 02:09 | PROGRESS NOTE ---
DATE: August 18, 2018 DIAGNOSES 1. 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 2. Malignant neoplasm, metastatic to left lung. 3. Tracheostomy dependent. 4. Drug-induced fever. ONCOLOGY HISTORY * 06/15/18: Thyroid biopsy in [place] consistent with squamous variant of anaplastic thyroid cancer. * 06/17/18: Transfer to [facility] with emergent tracheal biopsy consistent with ATC BRAF V600E mutation positive. * 06/19/18: Starts Braftovi/Mektovi (samples supplied). * 07/16/18: Starts Quad Shot RT. HISTORY OF PRESENT ILLNESS Ms. Robison is a pleasant 63-year-old woman who called our office this morning to report another episode of hypotension at home with systolic blood pressure reported to be in the 70s. She has had difficulty with hypotension and has been found to be significantly dehydrated during episodes of severe hypotension. We did see her for consultation on 07/22/18, and we are providing supportive care here locally in [place]. She does follow up with her physicians in [place]. She did not faint, though did feel significantly fatigued and slightly dizzy. She has had no nausea or vomiting. She reports that most recently, a couple of weeks ago, she was seen in [place] and then was hospitalized for a couple of days in the ICU secondary to persistent fevers. She reports subjective fevers at that time of 103 degrees Fahrenheit or greater. She was also quite hypotensive during that visit. She was treated supportively. At that time, she was also given a five-day drug holiday for her doublet therapy with Tafinlar/Mekinist. After hospitalization and after her drug holiday, treatment was resumed, though Tafinlar has been dose-reduced by 25%. She remains on Mekinist at full dose. She also reports that her physicians in [place] reported that her tumor has shrunk about 80% in size. She did meet with a surgeon to see if surgical treatment was possible, and unfortunately, this is not possible due to the location of the tumor. She is quite hopeful, though, as are we, as her tumor has decreased by 80% in such a short time. Please refer to consultation note on 07/22/18. REVIEW OF SYSTEMS Patient feels tired and has some generalized weakness. She felt lightheaded this morning. No nausea. No vomiting. The remainder of a 12-point review of systems is otherwise negative. PHYSICAL EXAMINATION VITAL SIGNS: On arrival, T 98.7, P 81, BP 106/60, R 16, oxygen saturation 95% room air. At discharge, patient was stable, with blood pressure 110/76, heart rate 68, BP 110/76, P 68, R 16, oxygen saturation 95% room air, afebrile with temperature of 98.9 degrees Fahrenheit. We treated her supportively today and provided IV fluid rehydration with 2L IV normal saline. She did not require any antiemetics. She was discharged in stable condition, and we will continue to follow up with her supportively. MARITA
[2018-08-26 11:56] VITALS: BP 106/68
[2018-08-26] MEDS: NS(*) 0.9% 1000 ML BAG 1,000 ML IV PRN ×2 (12:43→14:01)
--- NOTE | 2018-08-26 13:36 | ONCOLOGY FOLLOW UP NOTE ---
EVENT DATE: August 26, 2018 DIAGNOSES 1. 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 2. Malignant neoplasm, metastatic to left lung. 3. Tracheostomy dependent. 4. Drug-induced fever. ONCOLOGY HISTORY * 06/15/18: Thyroid biopsy in [place] consistent with squamous variant of anaplastic thyroid cancer. * 06/17/18: Transfer to [facility] with emergent tracheal biopsy consistent with ATC BRAF V600E mutation positive. * 06/19/18: Starts Braftovi/Mektovi (samples supplied). * 07/16/18: Starts Quad Shot RT. HISTORY OF PRESENT ILLNESS Ms. Robison is a pleasant 63-year-old woman who called our office this morning to report another episode of hypotension at home with systolic blood pressure reported to be in the 70s. She has had difficulty with hypotension and has been found to be significantly dehydrated during episodes of severe hypotension. We did see her for consultation on 07/22/18, and we are providing supportive care here locally in [place]. She continues to follow with her physicians in [place] and will be in [place] on September 07, 2018 for followup with her physicians, PET scan and labs. Today, she called our office to report that she had been feeling dizzy and had evidence of hypotension over the last two days. She reports that her blood pressure as recently as early this morning upon awakening was 80/52. She felt very lightheaded and felt as though she was going to faint, although she did not faint. She reports that most recently, a couple of weeks ago, she was seen in [place] and then was hospitalized for a couple of days in the ICU secondary to persistent fevers. She reports subjective fevers at that time of 103 degrees Fahrenheit or greater. She was also quite hypotensive during that visit. She was treated supportively. At that time, she was also given a five-day drug holiday for her doublet therapy with Tafinlar/Mekinist. After hospitalization and after her drug holiday, treatment was resumed, though Tafinlar has been dose-reduced by 25%. She remains on Mekinist at full dose. She also reports that her physicians in [place] reported that her tumor has shrunk about 80% in size. She did meet with a surgeon to see if surgical treatment was possible, and unfortunately, this is not possible due to the location of the tumor. She is quite hopeful, though, as are we, as her tumor has decreased by 80% in such a short time. Please refer to consultation note on 07/22/18. REVIEW OF SYSTEMS Patient tells me that she awoke feeling quite dizzy, things around her got black and she felt as though she was going to faint, but didn't. She checked her blood pressure at that time and it was in the low 80s. Other than the she felt well. Her appetite has decreased while on treatment, although she tries to eat when she can. She believes that she is drinking fluids well, tells me that she at least drinks 72 ounces of water per day. She has not had any nausea or vomiting. The remainder of a 12-point review of systems is performed today and is otherwise negative. PHYSICAL EXAMINATION VITAL SIGNS: T 97.4, P 80, R 16, BP 106/68. Patient was evaluated today and we treated her supportively with IV fluid rehydration with 2L IV normal saline. She has no signs of fluid overload or extremity swelling but I did instruct patient to monitor that and in the future she may benefit from just 1L. Her pattern of IV fluid rehydration is about 1 to 1-1/2 weeks and I anticipate that she will require IV rehydration in the next week or do. Patient will continue followup with us and we will continue to manage her supportively. MARITA
[2018-09-04 08:58] VITALS: BP 99/65
[2018-09-04] MEDS: LIDOCAINE/SOD BICARB 8.4% SYR ID PRN (09:11)
[2018-09-04 11:55] VITALS: BP 105/70
[2018-09-11] MEDS: NS(*) 0.9% 1000 ML BAG 1,000 ML IV PRN ×2 (11:37→12:53)
[2018-09-11] MEDS: LIDOCAINE/SOD BICARB 8.4% SYR ID PRN (11:37)
[2018-09-11 11:38] VITALS: BP 91/46
[2018-09-11 14:30] VITALS: BP 100/62
[2018-09-17] MEDS: LIDOCAINE/SOD BICARB 8.4% SYR ID PRN (12:07)
[2018-09-17] MEDS: NS(*) 0.9% 1000 ML BAG 1,000 ML IV PRN ×2 (12:07→13:24)
[2018-09-17 12:09] VITALS: BP 86/53
[2018-09-17 14:08] VITALS: BP 113/83
[2018-09-22 08:17] VITALS: BP 101/67
[2018-09-22] MEDS: LIDOCAINE/SOD BICARB 8.4% SYR ID PRN (08:49)
[2018-09-22] MEDS: NS(*) 0.9% 1000 ML BAG 1,000 ML IV PRN ×2 (08:50→10:25)
[2018-09-22 11:32] VITALS: BP 103/59
[2018-09-23 12:15] VITALS: BP 91/59
--- NOTE | 2018-09-23 15:52 | ONCOLOGY FOLLOW UP NOTE ---
EVENT DATE: September 23, 2018 REASON FOR FOLLOWUP Anaplastic thyroid carcinoma, stage IVC, BRAF V600E mutated. INTERIM HISTORY Alina returns to clinic for a followup visit today. Since our last visit, she has been followed by Dr. Hernandez and his team at the [facility]. She has also had severe visits here at [facility] for supportive care. She reports that today she is actually feeling pretty good with the exception of phlegm that is building up around her tracheostomy. She just underwent a chest x-ray that was unremarkable. She has an occasional cough, but no sinus congestion. She denies new pain. She does have an area of fullness over the left neck that had recently popped up after medications were held. This has not grown per her exams at home. She reports no abdominal pain, and she has had no recent changes in bowel or bladder habits. She is here to [facility], and she reports that she will be starting radiation therapy in [place] soon. REVIEW OF SYSTEMS Otherwise negative, and all systems were reviewed. PAST MEDICAL HISTORY 1. Hypothyroidism. 2. Anaplastic thyroid carcinoma, as above. CURRENT MEDICATIONS 1. Dabrafenib. 2. Trametinib. 3. Levothyroxine. 4. Zofran. ALLERGIES No known drug allergies. SOCIAL HISTORY Patient is a nonsmoker and nondrinker. There is no history of illicit drug use. FAMILY HISTORY Noncontributory. VITAL SIGNS Temperature is 99.9, blood pressure 91/59, pulse is 63, respirations 16, oxygen saturation is 98% on room air. Weight is 60.5 kg. PHYSICAL EXAMINATION GENERAL: Patient is alert and oriented times three, in no apparent distress, sitting in the exam room chair. She is interactive and pleasant. HEENT: Anicteric sclerae. NECK: Tracheostomy in place with no notable drainage around the trach site. NEUROLOGIC: Grossly nonfocal. EXTREMITIES: No edema, clubbing, or cyanosis. SKIN: No concerning rash or lesion. LYMPH NODES: Palpable mass over the sternocleidomastoid on the left. LABORATORY STUDIES Reviewed per the [employer] and [facility] records. IMAGING Reviewed. ASSESSMENT AND PLAN Anaplastic thyroid carcinoma. I had a good visit with Alina and her today. She continues on dabrafenib and trametinib. She has had expected toxicity from treatment, to include some fevers as well as episodes of hypotension. She has been keeping up with hydration as well as possible, and she is also receiving about 2 L of normal saline per week on an average here at [facility]. She plans to begin radiation therapy to the neck soon. As discussed, we are certainly more than happy to continue our role in supportive care for her here in our [facility]. I will forward this note to Dr. Hernandez at [facility] as well. I will plan to see her in two to three months' time, or sooner if there are questions or concerns. MARITA
[2018-09-30 14:23] VITALS: BP 99/67
[2018-09-30] MEDS: NS(*) 0.9% 1000 ML BAG 1,000 ML IV PRN ×2 (14:42→15:45)
[2018-09-30] MEDS: LIDOCAINE/SOD BICARB 8.4% SYR ID PRN (14:42)
[2018-09-30 16:45] VITALS: BP 103/72
[2018-10-08 14:05] VITALS: BP 85/63
[2018-10-08] MEDS: LIDOCAINE/SOD BICARB 8.4% SYR ID PRN (14:21)
[2018-10-08] MEDS: NS(*) 0.9% 1000 ML BAG 1,000 ML IV PRN ×2 (14:21→15:38)
[2018-10-08 16:58] VITALS: BP 92/59
[2018-10-14] MEDS: LIDOCAINE/SOD BICARB 8.4% SYR ID PRN (13:40)
[2018-10-14 13:46] VITALS: BP 81/51
[2018-10-14] MEDS: NS(*) 0.9% 1000 ML BAG 1,000 ML IV PRN ×2 (14:17→15:33)
[2018-10-14 16:31] VITALS: BP 98/72
[~2018-10-19 14:00] MED LIST changes: +DEXTROSE 5%(*) 100 ML BAG 100 ML IVPB PRN; +NS(*) 0.9% 100 ML BAG 100 ML IVPB PRN; +NS(*) 0.9% 1000 ML BAG 1,000 ML IV ONE; +ONDANSETRON 4 MG/2 ML VIAL IVP ONE; +ONDANSETRON 4 MG/2 ML VIAL IVP PRN
[2018-10-19] MEDS ORDERED: LEVO750T44 PO (14:01)
[2018-10-19 14:03] VITALS: BP 106/59
[2018-10-19] MEDS: NS(*) 0.9% 1000 ML BAG 1,000 ML IV PRN (14:15)
[2018-10-19] MEDS: LIDOCAINE/SOD BICARB 8.4% SYR ID PRN (14:15)
== END 2018-10-20 ==
LOC: SPU 14:00
PROVIDERS: ATTEND Nurse Practitioner
DX: C73 Malignant neoplasm of thyroid gland (principal); R11.0 Nausea; E01.0 Iodine-deficiency related diffuse (endemic) goiter
CPT/HCPCS: 96360; 96361; 96365; 96366; 99212; J7030

== ENCOUNTER → 2018-11-04 | Outpatient (CLI) | payer OTHER ==
[2018-08-07 16:00] VITALS: BMI 24.0
[~2018-11-04] MED LIST changes: +CEFU500T10 PO; -DEXTROSE 5%(*) 100 ML BAG 100 ML IVPB PRN; +LEVO500T83 PO; +LEVO750T44 PO; -NS(*) 0.9% 100 ML BAG 100 ML IVPB PRN; -NS(*) 0.9% 1000 ML BAG 1,000 ML IV ONE; -ONDANSETRON 4 MG/2 ML VIAL IVP ONE; -ONDANSETRON 4 MG/2 ML VIAL IVP PRN
== END ==
LOC: LAB 15:49
PROVIDERS: ATTEND Otolaryngology
DX: J04.10 Acute tracheitis without obstruction (principal)
CPT/HCPCS: 87071

== ENCOUNTER → 2018-11-10 | Outpatient (CLI) | payer OTHER ==
[2018-08-07 16:00] VITALS: BMI 24.0
== END ==
LOC: LAB 16:24
PROVIDERS: ATTEND Otolaryngology
DX: J04.10 Acute tracheitis without obstruction (principal)
CPT/HCPCS: 87070